=== PATIENT | male | born 1955 | race Two or more races ===

== ENCOUNTER → 2019-10-20 | Emergency (ER) | payer OTHER, MEDICAID ==
[~2019-10-20] VITALS: Ht 175.3 cm; Wt 120.7 kg
[2019-10-20 06:27] LABS: Urine Bacteria NONE SEEN /hpf (None Seen); Urine Blood Negative /uL (Negative); Urine Specific Gravity 1.011 (1.001-1.035); Urine WBC <1 /hpf (0 - 3)
[2019-10-20 06:39] LABS: Basophils # (auto) 0 10 ^3/uL (0-0.2); Eosinophils # (auto) 0.2 10 ^3/uL (0-0.8); Lymphocytes # (auto) 2.4 10 ^3/uL (0.4-5.4); Monocytes # (auto) 0.9 10 ^3/uL (0-1.3); Red Blood Cells 4.51 10^6/uL (4.5-5.90)
[2019-10-20 06:41] LABS: Basophils % (auto) 0.2 % (0.0-2.0); Eosinophils % (auto) 2.4 % (0.0-7.0); Hematocrit 33.6 % (41.0-53.0); Hemoglobin 10.8 g/dL (13.5-17.5); Mean Corpuscular Hemoglobin 23.9 pg (28.0-32.0); Mean Corpuscular Volume 74.5 fL (80.0-100.0); Neutrophils % (auto) 58.4 % (37.0-80.0); Nucleated Red Blood Cells % 0.1 %; Platelet Count (auto) 243 10^3/uL (140-450); Red Cell Distribution Width 18.4 % (11.8-14.3); White Blood Cell 8.6 10^3/uL (4.4-10.8)
[2019-10-20 06:51] LABS: INR 1.12 (0.9-1.15); Partial Thromboplastin Time 26.5 sec (23.64-32.05)
[2019-10-20 06:57] LABS: Alanine Aminotransferase 28 U/L (16-61); Albumin 3.6 g/dL (3.4-5.0); Amylase 73 U/L (25-115); Anion Gap 7 (5-15); Aspartate Aminotransferase 17 U/L (15-37); BUN/Creatinine Ratio 13.6; Blood Urea Nitrogen 14 mg/dL (7-18); Calcium 8.4 mg/dL (8.5-10.1); Carbon Dioxide 26 mmol/L (21-32); Chloride 106 mmol/L (98-107); GFR African American 94 mL/min; GFR Non-African American 77 mL/min; Glucose 117 mg/dL (74-106); Lipase 151 U/L (73-393); Magnesium 2.1 mg/dL (1.6-2.6); Potassium 3.5 mmol/L (3.5-5.1); Sodium 139 mmol/L (136-145)
[2019-10-20 07:02] LABS: Alkaline Phosphatase 49 U/L (45-117); Bilirubin, Total 0.4 mg/dL (0.2-1.0); Total Protein 8.4 g/dL (6.4-8.2)
[2019-10-20 09:06] VITALS: BP 141/72
== END | disposition home or self-care (01) ==
LOC: ER 05:13
DX: R10.84 Generalized abdominal pain (principal); E11.9 Type 2 diabetes mellitus without complications; I10 Essential (primary) hypertension; Z93.3 Colostomy status
CPT/HCPCS: 36415; 74176; 80053; 81001; 82150; 82962; 83605; 83690; 83735; 84484; 85025; 85610; 85730; 93005

== ENCOUNTER → 2021-05-23 | Outpatient (CLI) | payer MEDICAID ==
[~2021-05-23] VITALS: Ht 175.3 cm; Wt 120.2 kg
[~2021-05-23] MED LIST: ADENOSINE 101 MG in GIVE UN-DILUTED 0 ML IV STA
[2021-05-23 09:55] VITALS: BP 138/70
== END | disposition home or self-care (01) ==
LOC: XY 08:12
PROVIDERS: ATTEND Internal Medicine
DX: I11.0 Hypertensive heart disease with heart failure (principal); I50.9 Heart failure, unspecified; R63.8 Other symptoms and signs concerning food and fluid intake; E11.9 Type 2 diabetes mellitus without complications; Z95.5 Presence of coronary angioplasty implant and graft; Z93.3 Colostomy status; Z79.4 Long term (current) use of insulin; Z98.890 Other specified postprocedural states
CPT/HCPCS: 78452; 93017; A9500; J0153

== ENCOUNTER 2021-12-06 08:12 | Inpatient (IN) | payer OTHER, MEDICAID ==
[2021-12-04 10:46] LABS: Eosinophils # (auto) 0.4 10 ^3/uL (0-0.8); Lymphocytes # (auto) 2.4 10 ^3/uL (0.4-5.4); Monocytes # (auto) 0.7 10 ^3/uL (0-1.3); Monocytes % (auto) 8.4 % (0.0-12.0)
[2021-12-04 10:51] LABS: Basophils # (auto) 0.1 10 ^3/uL (0-0.2); Basophils % (auto) 0.6 % (0.0-2.0); Eosinophils % (auto) 4.6 % (0.0-7.0); Hematocrit 39.3 % (41.0-53.0); Hemoglobin 12.7 g/dL (13.5-17.5); Lymphocytes % (auto) 26.7 % (10.0-50.0); Mean Corpuscular Hemoglobin 22.7 pg (28.0-32.0); Mean Corpuscular Hgb Conc. 32.4 g/dL (32.0-36.0); Mean Corpuscular Volume 70.1 fL (80.0-100.0); Neutrophils # (auto) 5.3 10 ^3/uL (1.6-8.6); Neutrophils % (auto) 59.7 % (37.0-80.0); Nucleated Red Blood Cells % 0.2 %; Red Blood Cells 5.61 10^6/uL (4.5-5.90); White Blood Cell 8.9 10^3/uL (4.4-10.8)
[2021-12-04 10:58] LABS: INR 1.1 (0.9-1.15); Partial Thromboplastin Time 26.9 sec (23.6-33.0)
[2021-12-04 11:06] LABS: Calcium 8.8 mg/dL (8.5-10.1); Potassium 3.8 mmol/L (3.5-5.1)
[2021-12-04 11:09] LABS: Bilirubin, Total 0.4 mg/dL (0.2-1.0); Total Protein 8.7 g/dL (6.4-8.2)
[2021-12-06] VITALS (9 sets, daily range): BP systolic 123–166; BP diastolic 64–96
[~2021-12-06] VITALS: Ht 175.3 cm; Wt 120.8 kg
[~2021-12-06 08:12] MED LIST changes: -ADENOSINE 101 MG in GIVE UN-DILUTED 0 ML IV STA; +AMLO-496 PO; +DULA1INJ SC; +FURO40TA4 PO; +GABA-339 PO; +GLIP10TA9 PO; +HYDR50TA15 PO; +INSU1INJ19 SC; +LISI20TA28 PO; +METF-929 PO; +METO-159 PO; +OME20T PO; +TIZA4TAB9 PO
[2021-12-06] MEDS ORDERED: HEPARIN SODIUM (PORCINE) 5000 UNITS/ML 1ML VIAL ONE (11:32)
[2021-12-06] MEDS ORDERED: VERAPAMIL 2.5MG/ML INJ 2ML VIAL IV ONE (11:32)
[2021-12-06] MEDS ORDERED: ANGIOMAX 250 MG VIAL IV ONE (11:32)
[2021-12-06] MEDS ORDERED: SODIUM CHL 0.9% 0 ML ONE (11:33)
[2021-12-06] MEDS ORDERED: fentaNYL CITRATE 100 MCG/2 ML VL ONE (11:33)
[2021-12-06] MEDS ORDERED: MIDAZOLAM HCL 2MG/2ML 2ml VIAL (1mg/ml) ONE (11:33)
[2021-12-06] MEDS ORDERED: IODIXANOL 320MG/ML 100ML BTL IV ONE (11:38)
[2021-12-06] MEDS ORDERED: MORPHINE SULFATE INJ 2 MG/ml SYRG IV PRN (12:15)
[2021-12-06] MEDS ORDERED: NITROGLYCERIN 0.4 MG SL TAB SL PRN (12:15)
[2021-12-06] MEDS ORDERED: ONDANSETRON HCL 4 MG/2 ML VIAL IV PRN (12:15)
[2021-12-06] MEDS ORDERED: ACETAMINOPHEN 500 MG TAB PO PRN (12:15)
[2021-12-06] MEDS ORDERED: DEXTROSE (50%) 50ML SYRG IV PRN (13:45)
[2021-12-06] MEDS ORDERED: LISINOPRIL 20 MG TAB PO ONE (13:45)
[2021-12-06] MEDS ORDERED: cloNIDine HCL 0.1 MG TAB PO PRN (14:00)
[2021-12-06] MEDS: ACCU-CHEK COMFORT CURVE STRIP VI SCH ×2 (17:34→22:00)
[2021-12-06] MEDS: InsuLIN REG 1unit/0.01ml Soln (100units/ml) SC SCH ×2 (17:35→22:01)
[2021-12-06] MEDS: HYDROcodone-ACET 5/325MG TAB PO PRN (21:08)
[2021-12-06 21:28] LABS: Urine Bacteria NONE SEEN /hpf (None Seen); Urine Blood Negative /uL (Negative); Urine Specific Gravity 1.034 (1.001-1.035); Urine WBC 1 /hpf (0 - 3)
[2021-12-06] MEDS: ATORVASTATIN 20 MG TAB PO SCH (22:00)
[2021-12-06] MEDS: METOPROLOL TARTRATE 50 MG TAB PO SCH (22:47)
[2021-12-07 05:00] VITALS: BP 147/77
[2021-12-07 05:23] LABS: Basophils # (auto) 0 10 ^3/uL (0-0.2); Basophils % (auto) 0.1 % (0.0-2.0); Eosinophils # (auto) 0.4 10 ^3/uL (0-0.8); Hemoglobin 12.2 g/dL (13.5-17.5); Monocytes # (auto) 0.8 10 ^3/uL (0-1.3); Neutrophils # (auto) 4.7 10 ^3/uL (1.6-8.6); Nucleated Red Blood Cells % 0.1 %; White Blood Cell 7.8 10^3/uL (4.4-10.8)
[2021-12-07 05:26] LABS: Eosinophils % (auto) 5.1 % (0.0-7.0); Hematocrit 37.9 % (41.0-53.0); Lymphocytes % (auto) 25.1 % (10.0-50.0); Mean Corpuscular Hemoglobin 22.6 pg (28.0-32.0); Mean Corpuscular Hgb Conc. 32.2 g/dL (32.0-36.0); Monocytes % (auto) 10.1 % (0.0-12.0); Neutrophils % (auto) 59.6 % (37.0-80.0); Red Blood Cells 5.41 10^6/uL (4.5-5.90)
[2021-12-07 05:34] LABS: Red Cell Distribution Width 21.3 % (11.8-14.3)
[2021-12-07] MEDS: ACCU-CHEK COMFORT CURVE STRIP VI SCH ×4 (05:49→21:47)
[2021-12-07] MEDS: InsuLIN REG 1unit/0.01ml Soln (100units/ml) SC SCH ×4 (06:01→21:47)
[2021-12-07 06:22] LABS: Calcium 8.7 mg/dL (8.5-10.1); Potassium 3.6 mmol/L (3.5-5.1)
[2021-12-07 06:25] LABS: BUN/Creatinine Ratio 14.7
[2021-12-07 09:00] VITALS: BP 148/79
[2021-12-07] MEDS: ASPirin 81 mg TAB PO SCH (09:48)
[2021-12-07] MEDS: PANTOPRAZOLE 40 MG TAB PO SCH (09:49)
[2021-12-07] MEDS: LISINOPRIL 20 MG TAB PO SCH (09:50)
[2021-12-07] MEDS: METOPROLOL TARTRATE 50 MG TAB PO SCH ×2 (09:54→21:47)
[2021-12-07 10:40] VITALS: BP 140/76
[2021-12-07 13:00] VITALS: BP 137/80
[2021-12-07] MEDS: HYDROcodone-ACET 5/325MG TAB PO PRN (15:30)
[2021-12-07 16:46] VITALS: BP 151/78
[2021-12-07] MEDS: ATORVASTATIN 20 MG TAB PO SCH (21:46)
[2021-12-07 22:46] VITALS: BP 121/79
[2021-12-08 05:13] VITALS: BP 142/80
[2021-12-08] MEDS: InsuLIN REG 1unit/0.01ml Soln (100units/ml) SC SCH ×2 (06:44→12:12)
[2021-12-08] MEDS: ACCU-CHEK COMFORT CURVE STRIP VI SCH ×2 (06:44→12:12)
[2021-12-08 08:10] VITALS: BP 151/79
[2021-12-08 09:20] VITALS: BP 151/79
[2021-12-08] MEDS: LISINOPRIL 20 MG TAB PO SCH (10:09)
[2021-12-08] MEDS: ASPirin 81 mg TAB PO SCH (10:09)
[2021-12-08] MEDS: PANTOPRAZOLE 40 MG TAB PO SCH (10:09)
[2021-12-08] MEDS: METOPROLOL TARTRATE 50 MG TAB PO SCH (10:09)
[2021-12-08] MEDS: HYDROcodone-ACET 5/325MG TAB PO PRN (12:20)
[2021-12-08 12:48] VITALS: BP 129/74
[2021-12-08 15:28] VITALS: BP 129/74
== END 2021-12-08 16:15 | disposition short-term general hospital (02) | DRG 287 ==
LOC: CATH 08:12 → TELE 12:15 → TELE-WESTW 15:24
PROVIDERS: ADMIT Internal Medicine; ATTEND Internal Medicine
PROC: 4A023N7 Measurement of Cardiac Sampling and Pressure, Left Heart, Percutaneous Approach (ICD-10-PCS; principal; 2021-12-06)
PROC: B2111ZZ Fluoroscopy of Multiple Coronary Arteries using Low Osmolar Contrast (ICD-10-PCS; 2021-12-06)
PROC: B2151ZZ Fluoroscopy of Left Heart using Low Osmolar Contrast (ICD-10-PCS; 2021-12-06)
DX: I25.10 Atherosclerotic heart disease of native coronary artery without angina pectoris (principal); I50.32 Chronic diastolic (congestive) heart failure; I11.0 Hypertensive heart disease with heart failure; E11.42 Type 2 diabetes mellitus with diabetic polyneuropathy; E66.01 Morbid (severe) obesity due to excess calories; E78.5 Hyperlipidemia, unspecified; Z93.3 Colostomy status; Z87.19 Personal history of other diseases of the digestive system; Z79.4 Long term (current) use of insulin; Z68.39 Body mass index [BMI] 39.0-39.9, adult
CPT/HCPCS: 36415; 80048; 80053; 80061; 81001; 82962; 83036; 85025; 85610; 85730; 93458; 99152; G0378; J1815; J2250; Q9967

== ENCOUNTER → 2022-03-20 | Outpatient (CLI) | payer OTHER, MEDICAID ==
[2022-03-20 11:51] LABS: Albumin 3.5 g/dL (3.4-5.0); Calcium 8.3 mg/dL (8.5-10.1); Potassium 3.6 mmol/L (3.5-5.1)
[2022-03-20 11:54] LABS: BUN/Creatinine Ratio 9.7; Bilirubin, Total 0.4 mg/dL (0.2-1.0); Total Protein 7.9 g/dL (6.4-8.2)
== END | disposition home or self-care (01) ==
LOC: LAB 10:55
PROVIDERS: ATTEND Internal Medicine
DX: I11.0 Hypertensive heart disease with heart failure (principal); I50.9 Heart failure, unspecified
CPT/HCPCS: 36415; 80053; 83880

== ENCOUNTER → 2022-03-22 | Outpatient (CLI) | payer OTHER, MEDICAID | END | disposition home or self-care (01) | LOC: XYW 10:41 | PROVIDERS: ATTEND Internal Medicine | DX: I08.8 Other rheumatic multiple valve diseases (principal); I24.9 Acute ischemic heart disease, unspecified; I11.9 Hypertensive heart disease without heart failure | CPT/HCPCS: 93306 ==

== ENCOUNTER → 2022-05-07 | Outpatient (CLI) | payer OTHER, MEDICAID ==
[2022-05-07 09:03] LABS: Albumin 3.7 g/dL (3.4-5.0); BUN/Creatinine Ratio 13.9; Calcium 8.8 mg/dL (8.5-10.1); Potassium 3.9 mmol/L (3.5-5.1)
[2022-05-07 09:05] LABS: Bilirubin, Total 0.4 mg/dL (0.2-1.0); Total Protein 8.2 g/dL (6.4-8.2)
== END | disposition home or self-care (01) ==
LOC: LAB 08:23
PROVIDERS: ATTEND Internal Medicine
DX: I10 Essential (primary) hypertension (principal)
CPT/HCPCS: 36415; 80053

== ENCOUNTER → 2022-08-06 | Outpatient (CLI) | payer OTHER, MEDICAID ==
[2022-08-06 07:48] LABS: Urine Blood Normal /uL (Negative)
[2022-08-06 07:50] LABS: Basophils # (auto) 0 10 ^3/uL (0-0.2); Eosinophils # (auto) 0.4 10 ^3/uL (0-0.8); Lymphocytes # (auto) 2.7 10 ^3/uL (0.4-5.4); Monocytes # (auto) 0.7 10 ^3/uL (0-1.3); Neutrophils # (auto) 4.7 10 ^3/uL (1.6-8.6)
[2022-08-06 07:52] LABS: Basophils % (auto) 0.2 % (0.0-2.0); Eosinophils % (auto) 4.4 % (0.0-7.0); Hematocrit 36.5 % (41.0-53.0); Lymphocytes % (auto) 32.3 % (10.0-50.0); Mean Corpuscular Hemoglobin 19.4 pg (28.0-32.0); Mean Corpuscular Hgb Conc. 30.1 g/dL (32.0-36.0); Mean Corpuscular Volume 64.3 fL (80.0-100.0); Monocytes % (auto) 8.1 % (0.0-12.0); Red Blood Cells 5.67 10^6/uL (4.5-5.90); White Blood Cell 8.5 10^3/uL (4.4-10.8)
[2022-08-06 07:56] LABS: Red Cell Distribution Width 21.7 % (11.8-14.3)
[2022-08-06 08:22] LABS: Potassium 4.1 mmol/L (3.5-5.1)
[2022-08-06 08:35] LABS: Albumin 3.7 g/dL (3.4-5.0); BUN/Creatinine Ratio 12.6; Bilirubin, Total 0.4 mg/dL (0.2-1.0); Calcium 8.5 mg/dL (8.5-10.1); Total Protein 8.4 g/dL (6.4-8.2)
== END | disposition home or self-care (01) ==
LOC: LAB 07:17
PROVIDERS: ATTEND Student in an Organized Health Care Education/Training Program
DX: I10 Essential (primary) hypertension (principal); E11.9 Type 2 diabetes mellitus without complications
CPT/HCPCS: 36415; 80053; 80061; 81001; 83036; 84443; 85025

== ENCOUNTER → 2022-12-04 | Outpatient (CLI) | payer OTHER, MEDICAID ==
[~2022-12-04] MED LIST changes: -AMLO-496 PO; +AMLO1TAB23 PO; +HYDR-4297 PO; -HYDR50TA15 PO; -LISI20TA28 PO; +LISI20TA56 PO
[2022-12-04 07:44] LABS: Basophils # (auto) 0 10 ^3/uL (0-0.2); Hemoglobin 11.4 g/dL (13.5-17.5); Lymphocytes # (auto) 2.6 10 ^3/uL (0.4-5.4); Mean Corpuscular Hemoglobin 20.3 pg (28.0-32.0); Monocytes # (auto) 0.7 10 ^3/uL (0-1.3)
[2022-12-04 07:46] LABS: Basophils % (auto) 0.4 % (0.0-2.0); Eosinophils # (auto) 0.4 10 ^3/uL (0-0.8); Eosinophils % (auto) 4.9 % (0.0-7.0); Mean Corpuscular Hgb Conc. 30.9 g/dL (32.0-36.0); Mean Corpuscular Volume 65.6 fL (80.0-100.0); Monocytes % (auto) 9.9 % (0.0-12.0); Neutrophils # (auto) 3.8 10 ^3/uL (1.6-8.6); Neutrophils % (auto) 50.8 % (37.0-80.0); Nucleated Red Blood Cells % 0.2 %; Red Blood Cells 5.64 10^6/uL (4.5-5.90); White Blood Cell 7.6 10^3/uL (4.4-10.8)
[2022-12-04 07:51] LABS: Urine Bacteria NONE SEEN /hpf (None Seen); Urine Blood Negative /uL (Negative); Urine WBC <1 /hpf (0 - 3)
[2022-12-04 08:24] LABS: Calcium 8.3 mg/dL (8.5-10.1); Potassium 3.7 mmol/L (3.5-5.1)
[2022-12-04 08:26] LABS: BUN/Creatinine Ratio 9.6 (10.0-20.0)
== END | disposition home or self-care (01) ==
LOC: LAB 07:12
PROVIDERS: ATTEND Student in an Organized Health Care Education/Training Program
DX: I10 Essential (primary) hypertension (principal); E11.9 Type 2 diabetes mellitus without complications
CPT/HCPCS: 36415; 80048; 81001; 83036; 85025

== ENCOUNTER → 2022-12-13 | Outpatient (CLI) | payer OTHER, MEDICAID ==
[2022-12-13 09:40] LABS: Calcium 8.8 mg/dL (8.5-10.1); Potassium 3.8 mmol/L (3.5-5.1)
[2022-12-13 09:46] LABS: Albumin 3.7 g/dL (3.4-5.0); Bilirubin, Total 0.4 mg/dL (0.2-1.0); Total Protein 8.3 g/dL (6.4-8.2)
== END | disposition home or self-care (01) ==
LOC: LAB 08:44
PROVIDERS: ATTEND Internal Medicine
DX: I50.32 Chronic diastolic (congestive) heart failure (principal)
CPT/HCPCS: 36415; 80053; 83880

== ENCOUNTER → 2023-04-08 | Outpatient (CLI) | payer OTHER, MEDICAID ==
[2023-04-08 07:23] LABS: Urine Bacteria NONE SEEN /hpf (None Seen); Urine Blood Negative /uL (Negative); Urine Clarity Clear (Clear); Urine Color Colorless (Yellow); Urine Mucus FEW (None Seen); Urine Protein, UAD 2+ (Negative); Urine Specific Gravity 1.011 (1.001-1.035); Urine Urobilinogen Normal (Negative); Urine WBC <1 /hpf (0 - 3)
[2023-04-08 08:00] LABS: Creatinine, Urine 48.09 mg/dL (30.0-125.0)
[2023-04-08 08:05] LABS: Alanine Aminotransferase 31 U/L (7-40); Albumin 4.5 g/dL (3.2-4.8); Alkaline Phosphatase 66 U/L (46-116); Anion Gap 9 (5-15); Aspartate Aminotransferase 16 U/L (13-40); Bilirubin, Total 0.4 mg/dL (0.2-1.0); Blood Urea Nitrogen 18 mg/dL (9-23); Calcium 9.1 mg/dL (8.5-10.1); Carbon Dioxide 27 mmol/L (20-30); Chloride 104 mmol/L (98-107); Glucose 149 mg/dL (74-106); Potassium 3.9 mmol/L (3.5-5.1); Sodium 140 mmol/L (136-145)
== END | disposition home or self-care (01) ==
LOC: LAB 06:32
PROVIDERS: ATTEND Student in an Organized Health Care Education/Training Program
DX: I10 Essential (primary) hypertension (principal); E11.9 Type 2 diabetes mellitus without complications
CPT/HCPCS: 36415; 80053; 81001; 82043; 82570; 83036

== ENCOUNTER → 2023-08-12 | Outpatient (CLI) | payer OTHER, MEDICAID | END | disposition home or self-care (01) | LOC: XYW 09:36 | PROVIDERS: ATTEND Internal Medicine | DX: I35.0 Nonrheumatic aortic (valve) stenosis (principal); I50.42 Chronic combined systolic (congestive) and diastolic (congestive) heart failure | CPT/HCPCS: 93306 ==

== ENCOUNTER → 2023-09-09 | Outpatient (CLI) | payer OTHER ==
[~2023-09-09] VITALS: Ht 175.3 cm; Wt 120.2 kg
[~2023-09-09] MED LIST changes: +ADENOSINE 101 MG in GIVE UN-DILUTED 0 ML IV ONE; +ADENOSINE 90 MG/30 ML INJ IV ONE
== END | disposition home or self-care (01) ==
LOC: Rad HDHVI 13:03
PROVIDERS: ATTEND Internal Medicine Cardiovascular Disease
DX: I11.0 Hypertensive heart disease with heart failure (principal); I50.42 Chronic combined systolic (congestive) and diastolic (congestive) heart failure; R07.89 Other chest pain; R06.02 Shortness of breath; E11.9 Type 2 diabetes mellitus without complications; E78.00 Pure hypercholesterolemia, unspecified; Z95.1 Presence of aortocoronary bypass graft; Z82.49 Family history of ischemic heart disease and other diseases of the circulatory system
CPT/HCPCS: 78452; 93005; 96374; 96375; A9500; J0153

== ENCOUNTER → 2023-11-01 | Outpatient (CLI) | payer OTHER, MEDICAID ==
[~2023-11-01] MED LIST changes: -ADENOSINE 101 MG in GIVE UN-DILUTED 0 ML IV ONE; -ADENOSINE 90 MG/30 ML INJ IV ONE; -HYDR-4297 PO; +HYDR50TA47 PO
[2023-11-01 06:57] LABS: Urine Bacteria None Seen /hpf (None Seen)
[2023-11-01 07:11] LABS: Basophils # (auto) 0 10 ^3/uL (0-0.2); Basophils % (auto) 0.3 % (0.0-2.0); Eosinophils # (auto) 0.4 10 ^3/uL (0-0.8); Hemoglobin 11.1 g/dL (13.5-17.5); Monocytes # (auto) 0.8 10 ^3/uL (0-1.3)
[2023-11-01 07:14] LABS: Eosinophils % (auto) 4.1 % (0.0-7.0); Lymphocytes # (auto) 2.4 10 ^3/uL (0.4-5.4); Lymphocytes % (auto) 25.1 % (10.0-50.0); Mean Corpuscular Hgb Conc. 30.7 g/dL (32.0-36.0); Mean Corpuscular Volume 65.2 fL (80.0-100.0); Monocytes % (auto) 8.1 % (0.0-12.0); Neutrophils % (auto) 62.4 % (37.0-80.0); Red Blood Cells 5.53 10^6/uL (4.5-5.90); White Blood Cell 9.6 10^3/uL (4.4-10.8)
[2023-11-01 07:15] LABS: Red Cell Distribution Width 23.1 % (11.8-14.3)
[2023-11-01 07:20] LABS: Alanine Aminotransferase 21 U/L (7-40); Albumin 4.7 g/dL (3.2-4.8); Alkaline Phosphatase 66 U/L (46-116); Anion Gap 7 (5-15); Aspartate Aminotransferase 13 U/L (13-40); BUN/Creatinine Ratio 14.4 (10.0-20.0); Bilirubin, Total 0.4 mg/dL (0.2-1.0); Blood Urea Nitrogen 20 mg/dL (9-23); Calcium 9.3 mg/dL (8.5-10.1); Carbon Dioxide 25 mmol/L (20-30); Chloride 109 mmol/L (98-107); Cholesterol 102 mg/dL (< 200); Glucose 85 mg/dL (74-106); HDL Cholesterol 36 mg/dL (40-59); LDL Cholesterol 50 mg/dL (< 100); Potassium 5.2 mmol/L (3.5-5.1); Sodium 141 mmol/L (136-145); Triglycerides 89 mg/dL (< 150)
[2023-11-01 07:21] LABS: Total Protein 8.2 g/dL (5.7-8.2)
[2023-11-01 07:23] LABS: Urine Blood Negative /uL (Negative); Urine Clarity Clear (Clear); Urine Color Light-Yellow (Yellow); Urine Protein, UAD 1+ (Negative); Urine Specific Gravity 1.013 (1.001-1.035); Urine Urobilinogen Normal (Negative); Urine WBC 1 /hpf (0 - 3)
[2023-11-01 07:34] LABS: Anisocytosis Slight; Hypochromia Moderate; Platelet Estimate Adequate
[2023-11-01 07:39] LABS: Creatinine, Urine 60.86 mg/dL (30.0-125.0)
== END | disposition home or self-care (01) ==
LOC: LAB 06:46
PROVIDERS: ATTEND Student in an Organized Health Care Education/Training Program
DX: Z12.5 Encounter for screening for malignant neoplasm of prostate (principal); E11.9 Type 2 diabetes mellitus without complications; I10 Essential (primary) hypertension
CPT/HCPCS: 36415; 80053; 80061; 81001; 82043; 82570; 83036; 84443; 85025

== ENCOUNTER 2024-01-05 10:09 | Inpatient (IN) | payer OTHER, MEDICAID ==
[~2024-01-05] VITALS: Ht 175.3 cm; Wt 118.4 kg
[~2024-01-05 10:09] MED LIST changes: +INSUINJ37 SC; +LOSA-535 PO; +TIRZ7.5I SC
[2024-01-05] MEDS: PANTOPRAZOLE 40 MG/10 ML VIAL INJ IV ONE (10:44)
[2024-01-05] MEDS: MORPHINE SULFATE 4 MG/ML SYR/VIAL IV ONE (10:44)
[2024-01-05] MEDS: ONDANSETRON HCL 4 MG/2 ML VIAL IV ONE (10:44)
[2024-01-05] MEDS: SODIUM CHLORIDE 0.9% 500 ML IVB ONE (10:48)
[2024-01-05 10:54] LABS: Eosinophils # (auto) 0 10 ^3/uL (0-0.8); Monocytes # (auto) 0.8 10 ^3/uL (0-1.3); Red Cell Distribution Width 23.3 % (11.8-14.3)
[2024-01-05 10:55] LABS: Basophils # (auto) 0.1 10 ^3/uL (0-0.2); Basophils % (auto) 0.5 % (0.0-2.0); Hematocrit 37.6 % (41.0-53.0); Hemoglobin 11.5 g/dL (13.5-17.5); Lymphocytes % (auto) 7.7 % (10.0-50.0); Mean Corpuscular Hemoglobin 20.1 pg (28.0-32.0); Mean Corpuscular Hgb Conc. 30.7 g/dL (32.0-36.0); Mean Corpuscular Volume 65.3 fL (80.0-100.0); Monocytes % (auto) 5.7 % (0.0-12.0); Neutrophils # (auto) 11.5 10 ^3/uL (1.6-8.6); Neutrophils % (auto) 86.1 % (37.0-80.0); Red Blood Cells 5.76 10^6/uL (4.5-5.90); White Blood Cell 13.3 10^3/uL (4.4-10.8)
[2024-01-05 11:11] LABS: Alanine Aminotransferase 18 U/L (7-40); Albumin 4.4 g/dL (3.2-4.8); Alkaline Phosphatase 67 U/L (46-116); Anion Gap 10 (5-15); Aspartate Aminotransferase < 8 U/L (13-40); BUN/Creatinine Ratio 11.2 (10.0-20.0); Blood Urea Nitrogen 13 mg/dL (9-23); Calcium 9.3 mg/dL (8.7-10.4); Carbon Dioxide 22 mmol/L (20-30); Chloride 106 mmol/L (98-107); Glucose 224 mg/dL (74-106); Lipase 42 U/L (12-53); Potassium 3.8 mmol/L (3.5-5.1); Sodium 138 mmol/L (136-145)
[2024-01-05 11:12] LABS: Bilirubin, Total 0.5 mg/dL (0.2-1.0); Total Protein 7.9 g/dL (5.7-8.2)
[2024-01-05 12:33] LABS: Urine Bacteria None Seen /hpf (None Seen)
[2024-01-05 12:55] LABS: Urine Blood Negative /uL (Negative); Urine Clarity Clear (Clear); Urine Color Light-Yellow (Yellow); Urine Protein, UAD 3+ (Negative); Urine Specific Gravity 1.024 (1.001-1.035); Urine Urobilinogen Normal (Negative); Urine WBC 5 /hpf (0 - 3)
[2024-01-05] MEDS ORDERED: DEXTROSE (50%) 50ML SYRG IV PRN (13:45)
[2024-01-05 13:49] LABS: Triglycerides 56 mg/dL (< 150)
[2024-01-05 13:50] LABS: LDL Cholesterol 63 mg/dL (< 100)
[2024-01-05 13:51] LABS: Cholesterol 128 mg/dL (< 200); HDL Cholesterol 49 mg/dL (40-59)
[2024-01-05] MEDS ORDERED: metroNIDAZOLE 500MG/100ML 100 ML IV SCH (14:00)
[2024-01-05] MEDS: SODIUM CHLORIDE 0.9% 1,000 ML IV SCH (14:30)
[2024-01-05] MEDS: cefTRIAXone 1GM/50ML D5W 50 ML IV ONE (14:33)
[2024-01-05 15:26] VITALS: PULSE 73; RESP 18; O2SAT 91
[2024-01-05] MEDS: PIPERACILLIN-TAZOB 3.375GM 100 ML IV ONE (16:14)
[2024-01-05] MEDS: ENOXAPARIN SOD 40 MG/0.4 ML SYRINGE SC SCH (16:21)
[2024-01-05] MEDS: glipiZIDE 5 MG TAB PO SCH (17:00)
[2024-01-05] MEDS: InsuLIN REG 1unit/0.01ml Soln (100units/ml) SC SCH (17:00)
[2024-01-05] MEDS: ACCU-CHEK COMFORT CURVE STRIP VI SCH (17:13)
[2024-01-05] MEDS: hydrALAZINE HCL 25 MG TAB PO SCH (18:00)
[2024-01-05] MEDS: ACETAMINOPHEN 325 MG TAB PO PRN (20:03)
[2024-01-05] MEDS: HYDROcodone-ACET 5/325MG TAB PO PRN (20:08)
[2024-01-05] MEDS: METOPROLOL TARTRATE 50 MG TAB PO SCH (20:09)
[2024-01-05 22:54] VITALS: BP 154/76; PULSE 66; RESP 17; TEMP 97.6; O2SAT 96
[2024-01-05 22:58] VITALS: PULSE 66; RESP 17; O2SAT 96
[2024-01-05] MEDS: PIPERACILLIN-TAZOB 3.375GM 100 ML IV SCH (23:12)
[2024-01-06] VITALS (7 sets, daily range): BP systolic 124–158; BP diastolic 62–81; PULSE 76–89; RESP 16–20; TEMP 97.6–101.4; O2SAT 90–96
[2024-01-06] MEDS: MORPHINE SULFATE INJ 2 MG/ml SYRG IV PRN (00:10)
[2024-01-06] MEDS ORDERED: EMPA1TAB3 PO (00:35)
[2024-01-06] MEDS ORDERED: LOSA-534 PO (00:35)
[2024-01-06] MEDS ORDERED: SPIR25TA8 PO (00:35)
[2024-01-06] MEDS ORDERED: LATA0.008 EACHEYE (00:36)
[2024-01-06 05:55] LABS: Basophils # (auto) 0 10 ^3/uL (0-0.2); Eosinophils # (auto) 0 10 ^3/uL (0-0.8)
[2024-01-06 05:57] LABS: Basophils % (auto) 0.2 % (0.0-2.0); Eosinophils % (auto) 0.1 % (0.0-7.0); Hemoglobin 11.5 g/dL (13.5-17.5); Lymphocytes % (auto) 5.1 % (10.0-50.0); Mean Corpuscular Hemoglobin 20.1 pg (28.0-32.0); Mean Corpuscular Hgb Conc. 31.1 g/dL (32.0-36.0); Mean Corpuscular Volume 64.7 fL (80.0-100.0); Monocytes # (auto) 1.8 10 ^3/uL (0-1.3); Neutrophils # (auto) 17.1 10 ^3/uL (1.6-8.6); Neutrophils % (auto) 85.6 % (37.0-80.0); Red Blood Cells 5.72 10^6/uL (4.5-5.90)
[2024-01-06 06:15] LABS: Alanine Aminotransferase 17 U/L (7-40); Albumin 4.3 g/dL (3.2-4.8); Alkaline Phosphatase 62 U/L (46-116); Anion Gap 9 (5-15); Aspartate Aminotransferase 9 U/L (13-40); BUN/Creatinine Ratio 10.3 (10.0-20.0); Bilirubin, Total 0.8 mg/dL (0.2-1.0); Blood Urea Nitrogen 12 mg/dL (9-23); Calcium 9.1 mg/dL (8.7-10.4); Carbon Dioxide 22 mmol/L (20-30); Chloride 108 mmol/L (98-107); Glucose 203 mg/dL (74-106); Potassium 3.7 mmol/L (3.5-5.1); Sodium 139 mmol/L (136-145); Total Protein 7.8 g/dL (5.7-8.2)
[2024-01-06 06:54] LABS: Anisocytosis Slight; Hypochromia Marked; Ovalocytes FEW; Platelet Estimate Adequate
[2024-01-06] MEDS ORDERED: cefTRIAXone 1GM/50ML D5W 50 ML IV SCH (09:00)
[2024-01-06] MEDS: amLODIPine BESYLATE 5 MG TAB PO SCH (09:40)
[2024-01-06] MEDS: GABAPENTIN 300 MG CAP PO PRN (09:41)
[2024-01-06] MEDS: PANTOPRAZOLE 40 MG TAB PO SCH (09:41)
[2024-01-07] VITALS (12 sets, daily range): BP systolic 109–152; BP diastolic 48–68; PULSE 66–89; RESP 16–23; TEMP 97.2–99.1; O2SAT 90–96
[2024-01-07 05:33] LABS: Mean Corpuscular Hemoglobin 20.6 pg (28.0-32.0)
[2024-01-07 05:37] LABS: Alanine Aminotransferase 22 U/L (7-40); Alkaline Phosphatase 64 U/L (46-116); Anion Gap 8 (5-15); Aspartate Aminotransferase 21 U/L (13-40); BUN/Creatinine Ratio 10.7 (10.0-20.0); Blood Urea Nitrogen 20 mg/dL (9-23); Calcium 9.1 mg/dL (8.7-10.4); Carbon Dioxide 24 mmol/L (20-30); Chloride 106 mmol/L (98-107); Glucose 218 mg/dL (74-106); Sodium 138 mmol/L (136-145)
[2024-01-07 05:38] LABS: Bilirubin, Total 0.9 mg/dL (0.2-1.0); Hematocrit 37.2 % (41.0-53.0); Hemoglobin 11.7 g/dL (13.5-17.5); Mean Corpuscular Hgb Conc. 31.6 g/dL (32.0-36.0); Mean Corpuscular Volume 65.4 fL (80.0-100.0); Red Blood Cells 5.69 10^6/uL (4.5-5.90); Total Protein 7.4 g/dL (5.7-8.2); White Blood Cell 29.5 10^3/uL (4.4-10.8)
[2024-01-07 05:39] LABS: INR 1.52 (0.9-1.15); Partial Thromboplastin Time 31.5 SEC (24.5-34.5); Prothrombin Time 15.6 sec (9.3-11.8)
[2024-01-07 06:03] LABS: Red Cell Distribution Width 23.4 % (11.8-14.3)
[2024-01-07 06:04] LABS: Band Neutrophils % (manual) 0; Basophils % (manual) 0 (0.0-2.0); Blast Cells 0; Eosinophils % (manual) 0 (0-7); Metamyelocytes % 0; Myelocytes % 0; Promyelocytes % 0; Reactive Lymphocytes 0
[2024-01-07 07:49] LABS: Anisocytosis Slight; Hypochromia Marked; Lymphocytes % (manual) 5 (10.0-50.0); Monocytes % (manual) 9 (0-12); Platelet Estimate Adequate
[2024-01-07 07:50] LABS: Ovalocytes FEW
[2024-01-07] MEDS: PANTOPRAZOLE 40 MG/10 ML VIAL INJ IV SCH (09:54)
[2024-01-07] MEDS: SODIUM CHLORIDE 0.9% 1,000 ML IV SCH (14:15)
[2024-01-07] MEDS: METOPROLOL TARTRATE 50 MG TAB PO SCH (17:27)
[2024-01-08 01:00] VITALS: BP 109/66; PULSE 66; RESP 20; TEMP 98.6; O2SAT 92
[2024-01-08 05:00] VITALS: BP 114/52; PULSE 68; RESP 20; TEMP 97.7; O2SAT 92
[2024-01-08 06:54] LABS: Basophils # (auto) 0 10 ^3/uL (0-0.2); Basophils % (auto) 0.2 % (0.0-2.0); Eosinophils # (auto) 0.3 10 ^3/uL (0-0.8); Monocytes # (auto) 1.2 10 ^3/uL (0-1.3)
[2024-01-08 06:58] LABS: Eosinophils % (auto) 2.1 % (0.0-7.0); Hematocrit 35.5 % (41.0-53.0); Lymphocytes # (auto) 1.7 10 ^3/uL (0.4-5.4); Lymphocytes % (auto) 10.2 % (10.0-50.0); Mean Corpuscular Hemoglobin 20.4 pg (28.0-32.0); Mean Corpuscular Volume 65.8 fL (80.0-100.0); Monocytes % (auto) 7.4 % (0.0-12.0); Neutrophils # (auto) 13.4 10 ^3/uL (1.6-8.6); Neutrophils % (auto) 80.1 % (37.0-80.0); Nucleated Red Blood Cells % 0.1 %; White Blood Cell 16.7 10^3/uL (4.4-10.8)
[2024-01-08 07:07] LABS: Alanine Aminotransferase 46 U/L (7-40); Albumin 3.8 g/dL (3.2-4.8); Alkaline Phosphatase 74 U/L (46-116); Anion Gap 9 (5-15); Calcium 8.8 mg/dL (8.7-10.4); Carbon Dioxide 23 mmol/L (20-30); Chloride 105 mmol/L (98-107); Glucose 155 mg/dL (74-106); Potassium 3.4 mmol/L (3.5-5.1); Sodium 137 mmol/L (136-145)
[2024-01-08 07:08] LABS: Aspartate Aminotransferase 43 U/L (13-40); BUN/Creatinine Ratio 15.6 (10.0-20.0); Bilirubin, Total 0.7 mg/dL (0.2-1.0); Total Protein 6.9 g/dL (5.7-8.2)
[2024-01-08 07:10] LABS: Blood Urea Nitrogen 31 mg/dL (9-23)
[2024-01-08 07:18] LABS: Red Cell Distribution Width 23.3 % (11.8-14.3)
[2024-01-08 08:51] VITALS: BP 137/69; PULSE 74; RESP 19; TEMP 97.6; O2SAT 95
[2024-01-08 12:21] VITALS: BP 115/63; PULSE 57; RESP 18; TEMP 97.6; O2SAT 95
[2024-01-08] MEDS ORDERED: DICL1GEL73 EXT (14:55)
[2024-01-08] MEDS ORDERED: OMEP1CAP70 PO (14:55)
[2024-01-08] MEDS ORDERED: ISOS1TAB28 PO (14:55)
[2024-01-08] MEDS ORDERED: ATOR-507 PO (15:06)
[2024-01-08] MEDS ORDERED: LACT12LO26 EX (15:06)
[2024-01-08] MEDS ORDERED: DICL1GEL59 TOP (15:06)
[2024-01-08] MEDS: POTASSIUM CHL 20 Meq TABLET PO ONE (15:14)
[2024-01-08 16:28] VITALS: BP_SYST 101; BP_SYST 115; BP_DIAS 63; BP_DIAS 68; PULSE 57; PULSE 66; RESP 17; RESP 18; TEMP 97.6; O2SAT 92; O2SAT 95
[2024-01-08 21:00] VITALS: BP 112/60; PULSE 72; RESP 18; TEMP 97.9; O2SAT 90
[2024-01-09 01:00] VITALS: BP 124/68; PULSE 68; RESP 17; TEMP 97.7; O2SAT 90
[2024-01-09 05:00] VITALS: BP 141/64; PULSE 78; RESP 17; TEMP 98; O2SAT 92
[2024-01-09 06:25] LABS: Chloride 107 mmol/L (98-107); Potassium 4.1 mmol/L (3.5-5.1); Sodium 138 mmol/L (136-145)
[2024-01-09 06:26] LABS: Anion Gap 10 (5-15); Calcium 8.5 mg/dL (8.7-10.4); Carbon Dioxide 21 mmol/L (20-30)
[2024-01-09 06:31] LABS: BUN/Creatinine Ratio 21.4 (10.0-20.0); Blood Urea Nitrogen 33 mg/dL (9-23); Glucose 168 mg/dL (74-106)
[2024-01-09 06:34] LABS: Hematocrit 34.7 % (41.0-53.0); Hemoglobin 10.8 g/dL (13.5-17.5)
[2024-01-09 06:40] LABS: Mean Corpuscular Hemoglobin 20.6 pg (28.0-32.0); Mean Corpuscular Hgb Conc. 31.2 g/dL (32.0-36.0); Red Blood Cells 5.26 10^6/uL (4.5-5.90)
[2024-01-09 06:48] LABS: Band Neutrophils % (manual) 0; Basophils % (manual) 0 (0.0-2.0); Blast Cells 0; Metamyelocytes % 0; Myelocytes % 0; Promyelocytes % 0; Reactive Lymphocytes 0
[2024-01-09 08:23] LABS: Eosinophils % (manual) 5 (0-7); Lymphocytes % (manual) 19 (10.0-50.0); Monocytes % (manual) 7 (0-12); Platelet Estimate Adequate
[2024-01-09 08:24] LABS: Giant Platelets Few; Hypochromia Moderate
[2024-01-09 08:25] LABS: Anisocytosis Slight
[2024-01-09 08:48] VITALS: BP 117/66; PULSE 71; RESP 22; TEMP 98.1; O2SAT 92
[2024-01-09] MEDS: SODIUM CHLORIDE 0.9% 1,000 ML IV SCH (11:32)
[2024-01-09 12:26] VITALS: BP 126/72; PULSE 63; RESP 18; TEMP 98.1; O2SAT 92
[2024-01-09 16:42] VITALS: BP 140/69; PULSE 63; RESP 20; TEMP 98; O2SAT 92
[2024-01-09 21:00] VITALS: BP 136/68; PULSE 55; RESP 20; TEMP 97.9; O2SAT 92
[2024-01-10 05:00] VITALS: BP 136/68; PULSE 62; RESP 20; TEMP 98; O2SAT 94
[2024-01-10 05:01] LABS: Basophils # (auto) 0 10 ^3/uL (0-0.2); Lymphocytes # (auto) 1.6 10 ^3/uL (0.4-5.4); Monocytes # (auto) 0.7 10 ^3/uL (0-1.3); Red Blood Cells 5.11 10^6/uL (4.5-5.90)
[2024-01-10 05:06] LABS: Basophils % (auto) 0.4 % (0.0-2.0); Eosinophils # (auto) 0.4 10 ^3/uL (0-0.8); Eosinophils % (auto) 6.8 % (0.0-7.0); Hematocrit 33.1 % (41.0-53.0); Hemoglobin 10.5 g/dL (13.5-17.5); Lymphocytes % (auto) 23.8 % (10.0-50.0); Mean Corpuscular Hemoglobin 20.6 pg (28.0-32.0); Mean Corpuscular Hgb Conc. 31.8 g/dL (32.0-36.0); Mean Corpuscular Volume 64.7 fL (80.0-100.0); Monocytes % (auto) 10.5 % (0.0-12.0); Neutrophils # (auto) 3.8 10 ^3/uL (1.6-8.6); Neutrophils % (auto) 58.5 % (37.0-80.0); Nucleated Red Blood Cells % 0.1 %; White Blood Cell 6.5 10^3/uL (4.4-10.8)
[2024-01-10 05:15] LABS: Alanine Aminotransferase 42 U/L (7-40); Alkaline Phosphatase 81 U/L (46-116); Calcium 8.8 mg/dL (8.7-10.4); Carbon Dioxide 23 mmol/L (20-30); Chloride 108 mmol/L (98-107); Glucose 152 mg/dL (74-106)
[2024-01-10 05:16] LABS: Albumin 3.7 g/dL (3.2-4.8); Anion Gap 8 (5-15); Aspartate Aminotransferase 24 U/L (13-40); BUN/Creatinine Ratio 14.1 (10.0-20.0); Bilirubin, Total 0.5 mg/dL (0.2-1.0); Blood Urea Nitrogen 18 mg/dL (9-23); Potassium 3.7 mmol/L (3.5-5.1); Sodium 139 mmol/L (136-145); Total Protein 6.7 g/dL (5.7-8.2)
[2024-01-10 05:27] LABS: Red Cell Distribution Width 22.4 % (11.8-14.3)
[2024-01-10 09:00] VITALS: BP 140/71; PULSE 62; RESP 18; TEMP 98.2; O2SAT 94
[2024-01-10 13:00] VITALS: BP 132/66; PULSE 57; RESP 18; TEMP 98.2; O2SAT 94
[2024-01-10 17:00] VITALS: BP 130/58; PULSE 62; RESP 18; TEMP 98; O2SAT 93
[2024-01-10 21:00] VITALS: BP 127/61; PULSE 62; RESP 18; TEMP 98.1; O2SAT 90
[2024-01-11] VITALS (8 sets, daily range): BP systolic 121–157; BP diastolic 58–72; PULSE 64–78; RESP 17–21; TEMP 97.6–98.7; O2SAT 92–94
[2024-01-12] VITALS (8 sets, daily range): BP systolic 130–152; BP diastolic 69–86; PULSE 62–81; RESP 16–20; TEMP 98–98.6; O2SAT 90–97
[2024-01-13] VITALS (8 sets, daily range): BP systolic 125–158; BP diastolic 63–85; PULSE 65–81; RESP 17–22; TEMP 97.5–98.7; O2SAT 91–98
[2024-01-13 06:51] LABS: Hematocrit 32.9 % (41.0-53.0); Hemoglobin 10.4 g/dL (13.5-17.5); Mean Corpuscular Hemoglobin 20.7 pg (28.0-32.0); Mean Corpuscular Hgb Conc. 31.7 g/dL (32.0-36.0); Mean Corpuscular Volume 65.3 fL (80.0-100.0); Red Blood Cells 5.04 10^6/uL (4.5-5.90); White Blood Cell 7.7 10^3/uL (4.4-10.8)
[2024-01-13] MEDS: BUPIVACAINE 0.25% INJ 50ML VIAL ONE (06:51)
[2024-01-13] MEDS: LIDOCAINE W/ EPINEPHRINE 1% 20ML VIAL ONE (06:51)
[2024-01-13 06:57] LABS: Anion Gap 7 (5-15); Calcium 8.9 mg/dL (8.7-10.4); Carbon Dioxide 23 mmol/L (20-30); Chloride 107 mmol/L (98-107); Potassium 3.9 mmol/L (3.5-5.1); Sodium 137 mmol/L (136-145)
[2024-01-13 07:04] LABS: BUN/Creatinine Ratio 7.4 (10.0-20.0); Blood Urea Nitrogen 10 mg/dL (9-23); Glucose 137 mg/dL (74-106)
[2024-01-13] MEDS ORDERED: MIDAZOLAM HCL 2MG/2ML 2ml VIAL (1mg/ml) ONE (07:28)
[2024-01-13] MEDS ORDERED: fentaNYL CITRATE 5 ML ONE (07:28)
[2024-01-13] MEDS ORDERED: ROCURONIUM 10MG/ML 10ML VIAL IV ONE (07:33)
[2024-01-13] MEDS ORDERED: LIDOCAINE 2% (LOCAL ANESTH.) PF 5ml SDV ONE (07:33)
[2024-01-13] MEDS ORDERED: PROPOFOL 10 MG/ML 20 ML IV ONE (07:33)
[2024-01-13] MEDS ORDERED: ONDANSETRON HCL 4 MG/2 ML VIAL ONE (07:33)
[2024-01-13] MEDS: SUCCINYLCHOLINE CHLORIDE 20 MG/ML 10ML VIAL IV ONE (07:34)
[2024-01-13 07:39] LABS: Red Cell Distribution Width 22.7 % (11.8-14.3)
[2024-01-13 07:41] LABS: Band Neutrophils % (manual) 0; Basophils % (manual) 0 (0.0-2.0); Blast Cells 0; Metamyelocytes % 0; Myelocytes % 0; Promyelocytes % 0; Reactive Lymphocytes 0
[2024-01-13] MEDS: ONDANSETRON HCL 4 MG/2 ML VIAL IV ONE (08:30)
[2024-01-13] MEDS ORDERED: HYDROmorphone HCL 2 MG/ML VL/or syr IV PRN (08:30)
[2024-01-13] MEDS: POVIDONE IODINE 10 % TOPICAL OINT 30GM TOP ONE (08:51)
[2024-01-13] MEDS ORDERED: GLYCOPYRROLATE 0.2 MG/ML 1ML VIAL ONE ×2 (09:00→09:11)
[2024-01-13] MEDS ORDERED: NEOSTIGMINE 1 MG/ML INJ (10mg/10ML VIAL) ONE (09:00)
[2024-01-13] MEDS: HYDROmorphone HCL 2 MG/ML VL/or syr IV PRN ×2 (10:12→16:47)
[2024-01-13 12:16] LABS: Eosinophils % (manual) 6 (0-7); Hypochromia Moderate; Lymphocytes % (manual) 13 (10.0-50.0); Monocytes % (manual) 8 (0-12); Platelet Estimate Adequate
[2024-01-13 12:17] LABS: Anisocytosis Slight
[2024-01-14] VITALS (8 sets, daily range): BP systolic 109–144; BP diastolic 60–84; PULSE 66–97; RESP 17–80; TEMP 98–99; O2SAT 0–97
[2024-01-14 07:00] LABS: Basophils # (auto) 0 10 ^3/uL (0-0.2); Eosinophils # (auto) 0.3 10 ^3/uL (0-0.8); Monocytes # (auto) 1.2 10 ^3/uL (0-1.3)
[2024-01-14 07:01] LABS: Basophils % (auto) 0.3 % (0.0-2.0); Eosinophils % (auto) 3.8 % (0.0-7.0); Hematocrit 33.4 % (41.0-53.0); Hemoglobin 10.6 g/dL (13.5-17.5); Lymphocytes # (auto) 1.3 10 ^3/uL (0.4-5.4); Lymphocytes % (auto) 14.5 % (10.0-50.0); Mean Corpuscular Hgb Conc. 31.9 g/dL (32.0-36.0); Mean Corpuscular Volume 65.8 fL (80.0-100.0); Monocytes % (auto) 13.7 % (0.0-12.0); Neutrophils % (auto) 67.7 % (37.0-80.0); Nucleated Red Blood Cells % 0.1 %; Red Blood Cells 5.07 10^6/uL (4.5-5.90); White Blood Cell 8.9 10^3/uL (4.4-10.8)
[2024-01-14 07:20] LABS: Red Cell Distribution Width 23.1 % (11.8-14.3)
[2024-01-14] MEDS: FUROSEMIDE 40 MG/4 ML VIAL IV ONE (09:17)
[2024-01-14] MEDS: hydrALAZINE HCL 20 MG/ML VL IV PRN (12:45)
[2024-01-15] VITALS (22 sets, daily range): BP systolic 131–164; BP diastolic 66–82; PULSE 67–87; RESP 16–23; TEMP 97.8–100.8; O2SAT 85–99
[2024-01-15] MEDS: FUROSEMIDE 40 MG/4 ML VIAL IV ONE ×3 (11:29→18:06)
[2024-01-15 12:56] LABS: Base Excess -0.8 mmol/L (-2.0-2.0)
[2024-01-15] MEDS: IPRATROPIUM BROM 0.5 MG/2.5ML INH SOL NEB ONE (15:07)
[2024-01-15] MEDS: ALBUTEROL SULF 2.5 MG/0.5ML(0.5%) NEB SOLN NEB ONE (15:07)
[2024-01-15] MEDS: ENOXAPARIN SOD 30 MG/0.3 ML SYRINGE SC ONE (15:47)
[2024-01-15 16:23] LABS: Base Excess -1.3 mmol/L (-2.0-2.0)
[2024-01-15] MEDS: FUROSEMIDE 40 MG/4 ML VIAL IV SCH (18:07)
[2024-01-15] MEDS: ALBUTEROL SULF 2.5 MG/0.5ML(0.5%) NEB SOLN NEB SCH (18:34)
[2024-01-15] MEDS: IPRATROPIUM BROM 0.5 MG/2.5ML INH SOL NEB SCH (18:34)
[2024-01-15] MEDS: LIDOCAINE 2%HCL (LOCAL ANESTH.) INJ 20ML MDV ONE (19:19)
[2024-01-16] VITALS (73 sets, daily range): BP systolic 87–167; BP diastolic 8–98; PULSE 40–99; RESP 14–22; TEMP 98.2–99.9; O2SAT 82–100
[2024-01-16] MEDS: fentaNYL CITRATE 100 MCG/2 ML VL ONE (00:25)
[2024-01-16] MEDS: IODIXANOL 320MG/ML 100ML BTL IV ONE (00:25)
[2024-01-16] MEDS: MIDAZOLAM HCL 2MG/2ML 2ml VIAL (1mg/ml) ONE (00:26)
[2024-01-16 05:25] LABS: Basophils # (auto) 0 10 ^3/uL (0-0.2); Basophils % (auto) 0.3 % (0.0-2.0); Monocytes # (auto) 1.1 10 ^3/uL (0-1.3)
[2024-01-16 05:28] LABS: Eosinophils # (auto) 0.4 10 ^3/uL (0-0.8); Eosinophils % (auto) 3.6 % (0.0-7.0); Hematocrit 33.4 % (41.0-53.0); Hemoglobin 10.7 g/dL (13.5-17.5); Lymphocytes # (auto) 1.3 10 ^3/uL (0.4-5.4); Lymphocytes % (auto) 11.6 % (10.0-50.0); Mean Corpuscular Hemoglobin 20.7 pg (28.0-32.0); Mean Corpuscular Hgb Conc. 31.9 g/dL (32.0-36.0); Neutrophils # (auto) 8.4 10 ^3/uL (1.6-8.6); Neutrophils % (auto) 74.5 % (37.0-80.0); Red Blood Cells 5.14 10^6/uL (4.5-5.90); White Blood Cell 11.3 10^3/uL (4.4-10.8)
[2024-01-16 05:37] LABS: Chloride 104 mmol/L (98-107); Potassium 3.6 mmol/L (3.5-5.1); Sodium 140 mmol/L (136-145)
[2024-01-16 05:38] LABS: Anion Gap 8 (5-15); Calcium 8.7 mg/dL (8.7-10.4); Carbon Dioxide 28 mmol/L (20-30)
[2024-01-16 05:43] LABS: BUN/Creatinine Ratio 9.5 (10.0-20.0); Blood Urea Nitrogen 16 mg/dL (9-23); Glucose 170 mg/dL (74-106)
[2024-01-16] MEDS: ENOXAPARIN SOD 30 MG/0.3 ML SYRINGE SC SCH (08:56)
[2024-01-16 09:05] LABS: Base Excess 1.2 mmol/L (-2.0-2.0)
[2024-01-16] MEDS: NOREPINEPHRINE 8 MG/250ML KIT 250 ML IV SCH (09:15)
[2024-01-16] MEDS: ETOMIDATE (2MG/ML) 20ML VIAL IV ONE (09:21)
[2024-01-16] MEDS: ROCURONIUM 10MG/ML 10ML VIAL IV ONE (09:21)
[2024-01-16] MEDS: ONDANSETRON HCL 4 MG/2 ML VIAL IV PRN (09:31)
[2024-01-16] MEDS: PROPOFOL 100 ML IV SCH (09:40)
[2024-01-16] MEDS: fentaNYL Drip 2500mCg/250mlNS 250 ML IV SCH (09:50)
[2024-01-16 10:42] LABS: Base Excess 0.3 mmol/L (-2.0-2.0)
[2024-01-16 11:32] LABS: INR 1.21 (0.9-1.15); Partial Thromboplastin Time 26.7 SEC (24.5-34.5); Prothrombin Time 12.6 sec (9.3-11.8)
[2024-01-16] MEDS ORDERED: LIDOCAINE 2%HCL (LOCAL ANESTH.) INJ 20ML MDV ONE (12:11)
[2024-01-16] MEDS ORDERED: EPINEPHrine HCL 1 MG/1 ML AMP ONE (12:11)
[2024-01-16] MEDS ORDERED: LIDOCAINE 2% JELLY 11ml (GLYDO) ONE (12:11)
[2024-01-16] MEDS ORDERED: GLYCOPYRROLATE 0.2 MG/ML 1ML VIAL ONE (12:11)
[2024-01-16] MEDS ORDERED: fentaNYL CITRATE 100 MCG/2 ML VL ONE (12:12)
[2024-01-16] MEDS ORDERED: MIDAZOLAM HCL 5 MG/ML-1ML VIAL ONE (12:12)
[2024-01-17] VITALS (106 sets, daily range): BP systolic 91–136; BP diastolic 58–74; PULSE 69–83; RESP 16–20; TEMP 98.4–99.9; O2SAT 92–99
[2024-01-17 04:00] LABS: Basophils # (auto) 0 10 ^3/uL (0-0.2); Eosinophils # (auto) 0.6 10 ^3/uL (0-0.8); Eosinophils % (auto) 6.6 % (0.0-7.0); Hematocrit 30.7 % (41.0-53.0); Lymphocytes # (auto) 1.4 10 ^3/uL (0.4-5.4); Lymphocytes % (auto) 15.6 % (10.0-50.0)
[2024-01-17 04:05] LABS: Basophils % (auto) 0.3 % (0.0-2.0); Hemoglobin 9.9 g/dL (13.5-17.5); Mean Corpuscular Hgb Conc. 32.1 g/dL (32.0-36.0); Mean Corpuscular Volume 65.3 fL (80.0-100.0); Monocytes # (auto) 0.7 10 ^3/uL (0-1.3); Monocytes % (auto) 8.2 % (0.0-12.0); Neutrophils # (auto) 6.2 10 ^3/uL (1.6-8.6); Neutrophils % (auto) 69.3 % (37.0-80.0); Red Blood Cells 4.69 10^6/uL (4.5-5.90)
[2024-01-17 04:12] LABS: Red Cell Distribution Width 23.1 % (11.8-14.3)
[2024-01-17 04:16] LABS: Alanine Aminotransferase 159 U/L (7-40); Albumin 3.4 g/dL (3.2-4.8); Alkaline Phosphatase 90 U/L (46-116); Anion Gap 13 (5-15); Aspartate Aminotransferase 57 U/L (13-40); BUN/Creatinine Ratio 6.6 (10.0-20.0); Bilirubin, Total 0.7 mg/dL (0.2-1.0); Blood Urea Nitrogen 19 mg/dL (9-23); Calcium 8.4 mg/dL (8.7-10.4); Carbon Dioxide 27 mmol/L (20-30); Chloride 100 mmol/L (98-107); Glucose 157 mg/dL (74-106); Potassium 3.3 mmol/L (3.5-5.1); Sodium 140 mmol/L (136-145); Total Protein 7.2 g/dL (5.7-8.2)
[2024-01-17 08:04] LABS: Base Excess -1.9 mmol/L (-2.0-2.0)
[2024-01-17] MEDS: POTASSIUM CHL 20MEQ/100ML 100 ML IV SCH (08:28)
[2024-01-17] MEDS: MEROPENEM 1GM IVPB 50 ML IV ONE (10:29)
[2024-01-17] MEDS ORDERED: LINEZOLID 600MG/300ML 300 ML IV SCH (12:00)
[2024-01-17] MEDS ORDERED: Glucerna 1.2 Cal 1Liter BOTTLE GT SCH (12:30)
[2024-01-17] MEDS: SODIUM CHLORIDE 0.9% 1,000 ML IV ONE (15:01)
[2024-01-17 15:13] LABS: Urine Bacteria None Seen /hpf (None Seen)
[2024-01-17 15:18] LABS: Urine Amorphous Crystal FEW /hpf (None Seen); Urine Blood 2+ /uL (Negative); Urine Clarity Ex.Turbid (Clear); Urine Color Yellow (Yellow); Urine Mucus FEW (None Seen); Urine Protein, UAD 1+ (Negative); Urine Specific Gravity 1.026 (1.001-1.035); Urine Urobilinogen Normal (Negative); Urine WBC 15 /hpf (0 - 3)
[2024-01-17 15:31] LABS: Base Excess -1.1 mmol/L (-2.0-2.0)
[2024-01-17 15:34] LABS: Creatinine, Urine 195.98 mg/dL (30.0-125.0)
[2024-01-18] VITALS (110 sets, daily range): BP systolic 97–178; BP diastolic 56–84; PULSE 63–99; RESP 11–29; TEMP 98.1–100.4; O2SAT 93–100
[2024-01-18 04:05] LABS: Eosinophils # (auto) 0.6 10 ^3/uL (0-0.8); Hematocrit 30.4 % (41.0-53.0); Lymphocytes # (auto) 1.4 10 ^3/uL (0.4-5.4)
[2024-01-18 04:08] LABS: Basophils # (auto) 0 10 ^3/uL (0-0.2); Basophils % (auto) 0.2 % (0.0-2.0); Hemoglobin 9.6 g/dL (13.5-17.5); Lymphocytes % (auto) 17.4 % (10.0-50.0); Mean Corpuscular Hemoglobin 20.6 pg (28.0-32.0); Mean Corpuscular Hgb Conc. 31.6 g/dL (32.0-36.0); Mean Corpuscular Volume 65.2 fL (80.0-100.0); Monocytes # (auto) 0.8 10 ^3/uL (0-1.3); Monocytes % (auto) 9.8 % (0.0-12.0); Neutrophils # (auto) 5.2 10 ^3/uL (1.6-8.6); Neutrophils % (auto) 64.6 % (37.0-80.0); Red Blood Cells 4.66 10^6/uL (4.5-5.90); Red Cell Distribution Width 23.1 % (11.8-14.3); White Blood Cell 8.1 10^3/uL (4.4-10.8)
[2024-01-18 04:16] LABS: Anion Gap 14 (5-15); Carbon Dioxide 23 mmol/L (20-30); Chloride 102 mmol/L (98-107); Potassium 3.7 mmol/L (3.5-5.1); Sodium 139 mmol/L (136-145)
[2024-01-18 04:17] LABS: Calcium 8.6 mg/dL (8.7-10.4)
[2024-01-18 04:22] LABS: Blood Urea Nitrogen 24 mg/dL (9-23); Glucose 150 mg/dL (74-106)
[2024-01-18] MEDS: FUROSEMIDE 40 MG/4 ML VIAL IV ONE (07:43)
[2024-01-18 08:03] LABS: Base Excess -3.9 mmol/L (-2.0-2.0)
[2024-01-18 14:41] LABS: Base Excess -4.2 mmol/L (-2.0-2.0)
[2024-01-18] MEDS: ACETAMINOPHEN 325 MG TAB PO PRN (16:23)
[2024-01-18] MEDS: FUROSEMIDE 100 MG/10ML VIAL IV SCH (17:00)
[2024-01-19] VITALS (92 sets, daily range): BP systolic 118–176; BP diastolic 69–87; PULSE 63–98; RESP 12–35; TEMP 98.1–99.3; O2SAT 87–100
[2024-01-19 03:56] LABS: Basophils # (auto) 0 10 ^3/uL (0-0.2); Eosinophils # (auto) 0.4 10 ^3/uL (0-0.8)
[2024-01-19 03:59] LABS: Basophils % (auto) 0.4 % (0.0-2.0); Eosinophils % (auto) 4.7 % (0.0-7.0); Hematocrit 29.5 % (41.0-53.0); Hemoglobin 9.5 g/dL (13.5-17.5); Lymphocytes # (auto) 1.2 10 ^3/uL (0.4-5.4); Lymphocytes % (auto) 15.5 % (10.0-50.0); Mean Corpuscular Hemoglobin 20.8 pg (28.0-32.0); Mean Corpuscular Hgb Conc. 32.3 g/dL (32.0-36.0); Mean Corpuscular Volume 64.4 fL (80.0-100.0); Monocytes # (auto) 0.6 10 ^3/uL (0-1.3); Monocytes % (auto) 8.5 % (0.0-12.0); Neutrophils # (auto) 5.4 10 ^3/uL (1.6-8.6); Neutrophils % (auto) 70.9 % (37.0-80.0); Red Blood Cells 4.59 10^6/uL (4.5-5.90); White Blood Cell 7.6 10^3/uL (4.4-10.8)
[2024-01-19 04:00] LABS: Red Cell Distribution Width 22.7 % (11.8-14.3)
[2024-01-19 04:01] LABS: Alanine Aminotransferase 127 U/L (7-40); Albumin 3.4 g/dL (3.2-4.8); Alkaline Phosphatase 104 U/L (46-116); Anion Gap 14 (5-15); Aspartate Aminotransferase 54 U/L (13-40); BUN/Creatinine Ratio 8.7 (10.0-20.0); Bilirubin, Total 0.5 mg/dL (0.2-1.0); Blood Urea Nitrogen 28 mg/dL (9-23); Calcium 8.6 mg/dL (8.7-10.4); Carbon Dioxide 24 mmol/L (20-30); Chloride 104 mmol/L (98-107); Glucose 144 mg/dL (74-106); Magnesium 2.3 mg/dL (1.6-2.6); Potassium 3.9 mmol/L (3.5-5.1); Sodium 142 mmol/L (136-145); Total Protein 7.5 g/dL (5.7-8.2)
[2024-01-19 08:26] LABS: Base Excess -3.7 mmol/L (-2.0-2.0)
[2024-01-19 09:51] LABS: Base Excess -2.3 mmol/L (-2.0-2.0)
[2024-01-19 13:11] LABS: Base Excess -2.8 mmol/L (-2.0-2.0)
[2024-01-19] MEDS ORDERED: FUROSEMIDE 100 MG/10ML VIAL IV SCH (18:00)
[2024-01-19] MEDS: FUROSEMIDE 100 MG/10ML VIAL IV SCH (18:25)
[2024-01-20] VITALS (32 sets, daily range): BP systolic 121–185; BP diastolic 58–142; PULSE 74–97; RESP 14–26; TEMP 98.8–99.7; O2SAT 64–96
[2024-01-20 03:58] LABS: Basophils # (auto) 0.1 10 ^3/uL (0-0.2); Eosinophils # (auto) 0.3 10 ^3/uL (0-0.8); White Blood Cell 7.6 10^3/uL (4.4-10.8)
[2024-01-20 04:03] LABS: Basophils % (auto) 0.7 % (0.0-2.0); Eosinophils % (auto) 3.5 % (0.0-7.0); Hematocrit 31.9 % (41.0-53.0); Lymphocytes % (auto) 12.8 % (10.0-50.0); Mean Corpuscular Hemoglobin 20.6 pg (28.0-32.0); Mean Corpuscular Hgb Conc. 31.5 g/dL (32.0-36.0); Mean Corpuscular Volume 65.3 fL (80.0-100.0); Monocytes # (auto) 0.8 10 ^3/uL (0-1.3); Neutrophils # (auto) 5.5 10 ^3/uL (1.6-8.6); Red Blood Cells 4.87 10^6/uL (4.5-5.90)
[2024-01-20 04:08] LABS: Chloride 108 mmol/L (98-107); Sodium 145 mmol/L (136-145)
[2024-01-20 04:09] LABS: Anion Gap 12 (5-15); Calcium 8.8 mg/dL (8.7-10.4); Carbon Dioxide 25 mmol/L (20-30)
[2024-01-20 04:14] LABS: BUN/Creatinine Ratio 13.7 (10.0-20.0); Blood Urea Nitrogen 34 mg/dL (9-23); Glucose 144 mg/dL (74-106)
[2024-01-20 05:13] LABS: Anisocytosis Slight; Hypochromia Marked; Large Platelets FEW; Ovalocytes MODERATE; Platelet Estimate Adequate
[2024-01-20] MEDS: LABETALOL HCL 20 MG/4 ML VL IV PRN (09:01)
[2024-01-20] MEDS: CEFEPIME 1GM/ 50ML 50 ML IV SCH (14:27)
[2024-01-21] VITALS (34 sets, daily range): BP systolic 119–147; BP diastolic 65–83; PULSE 70–86; RESP 16–22; TEMP 98.8–99.7; O2SAT 92–97
[2024-01-21 03:54] LABS: Basophils # (auto) 0 10 ^3/uL (0-0.2)
[2024-01-21 03:59] LABS: Basophils % (auto) 0.5 % (0.0-2.0); Eosinophils # (auto) 0.2 10 ^3/uL (0-0.8); Eosinophils % (auto) 2.7 % (0.0-7.0); Hematocrit 32.7 % (41.0-53.0); Hemoglobin 10.2 g/dL (13.5-17.5); Lymphocytes # (auto) 1.2 10 ^3/uL (0.4-5.4); Lymphocytes % (auto) 14.7 % (10.0-50.0); Mean Corpuscular Hemoglobin 20.2 pg (28.0-32.0); Mean Corpuscular Hgb Conc. 31.1 g/dL (32.0-36.0); Mean Corpuscular Volume 65.1 fL (80.0-100.0); Monocytes % (auto) 11.9 % (0.0-12.0); Neutrophils # (auto) 5.7 10 ^3/uL (1.6-8.6); Neutrophils % (auto) 70.2 % (37.0-80.0); Red Blood Cells 5.02 10^6/uL (4.5-5.90); White Blood Cell 8.2 10^3/uL (4.4-10.8)
[2024-01-21 04:00] LABS: Red Cell Distribution Width 22.8 % (11.8-14.3)
[2024-01-21 04:09] LABS: Alanine Aminotransferase 186 U/L (7-40); Albumin 3.5 g/dL (3.2-4.8); Alkaline Phosphatase 99 U/L (46-116); Anion Gap 11 (5-15); Aspartate Aminotransferase 114 U/L (13-40); BUN/Creatinine Ratio 16.3 (10.0-20.0); Blood Urea Nitrogen 35 mg/dL (9-23); Calcium 8.8 mg/dL (8.7-10.4); Carbon Dioxide 26 mmol/L (20-30); Chloride 107 mmol/L (98-107); Glucose 156 mg/dL (74-106); Magnesium 2.4 mg/dL (1.6-2.6); Potassium 3.7 mmol/L (3.5-5.1); Sodium 144 mmol/L (136-145)
[2024-01-21 04:10] LABS: Bilirubin, Total 0.4 mg/dL (0.2-1.0); Total Protein 8.1 g/dL (5.7-8.2)
[2024-01-21] MEDS: FUROSEMIDE 40 MG/4 ML VIAL IV ONE (09:53)
[2024-01-21] MEDS: POTASSIUM EFFERVESENT TAB 25 MEQ PO ONE (09:53)
[2024-01-21] MEDS: ACETAMINOPHEN 325 MG TAB PO PRN (10:02)
[2024-01-21] MEDS: FUROSEMIDE 40 MG/4 ML VIAL IV SCH (17:38)
[2024-01-21] MEDS: Glucerna Carbsteady SHAKE Vanilla 8oz PO SCH (17:39)
[2024-01-21] MEDS: ALBUTEROL SULF 2.5 MG/0.5ML(0.5%) NEB SOLN NEB SCH (18:31)
[2024-01-21] MEDS: ACETYLCYSTEINE 10 %(100MG/ML) SOL 4ML NEB SCH (18:31)
[2024-01-21] MEDS: IPRATROPIUM BROM 0.5 MG/2.5ML INH SOL NEB SCH ×2 (18:31→22:43)
[2024-01-21] MEDS: HYDROCORTISONE SOD SUCC 100 MG/2ML INJ VIAL IV SCH (21:30)
[2024-01-22] VITALS (27 sets, daily range): BP systolic 118–155; BP diastolic 63–83; PULSE 60–79; RESP 13–24; TEMP 97.3–99.5; O2SAT 90–95
[2024-01-22 04:31] LABS: Eosinophils # (auto) 0 10 ^3/uL (0-0.8); Mean Corpuscular Hemoglobin 20.5 pg (28.0-32.0); Monocytes # (auto) 0.2 10 ^3/uL (0-1.3)
[2024-01-22 04:33] LABS: Basophils # (auto) 0 10 ^3/uL (0-0.2); Basophils % (auto) 0.6 % (0.0-2.0); Eosinophils % (auto) 0.3 % (0.0-7.0); Hematocrit 32.5 % (41.0-53.0); Hemoglobin 10.2 g/dL (13.5-17.5); Lymphocytes # (auto) 0.8 10 ^3/uL (0.4-5.4); Lymphocytes % (auto) 10.6 % (10.0-50.0); Mean Corpuscular Hgb Conc. 31.5 g/dL (32.0-36.0); Monocytes % (auto) 3.3 % (0.0-12.0); Neutrophils # (auto) 6.3 10 ^3/uL (1.6-8.6); Neutrophils % (auto) 85.2 % (37.0-80.0); White Blood Cell 7.4 10^3/uL (4.4-10.8)
[2024-01-22 04:38] LABS: Alanine Aminotransferase 174 U/L (7-40); Alkaline Phosphatase 102 U/L (46-116); Anion Gap 8 (5-15); BUN/Creatinine Ratio 20.2 (10.0-20.0); Blood Urea Nitrogen 43 mg/dL (9-23); Carbon Dioxide 27 mmol/L (20-30); Chloride 104 mmol/L (98-107); Magnesium 2.2 mg/dL (1.6-2.6); Potassium 4.7 mmol/L (3.5-5.1); Sodium 139 mmol/L (136-145)
[2024-01-22 04:39] LABS: Albumin 3.8 g/dL (3.2-4.8); Aspartate Aminotransferase 85 U/L (13-40); Bilirubin, Total 0.4 mg/dL (0.2-1.0)
[2024-01-22 04:40] LABS: Total Protein 8.2 g/dL (5.7-8.2)
[2024-01-22 04:52] LABS: Glucose 271 mg/dL (74-106)
[2024-01-22] MEDS ORDERED: DEXTROSE (50%) 50ML SYRG IV PRN ×2 (07:00→17:45)
[2024-01-22] MEDS: ACCU-CHEK COMFORT CURVE STRIP VI SCH ×2 (08:56→22:20)
[2024-01-22] MEDS: INSULIN LANTUS (GLARGINE) 1 /0.01ml (100units/ml) SC SCH ×2 (08:56→22:19)
[2024-01-22] MEDS: InsuLIN REG 1unit/0.01ml Soln (100units/ml) SC SCH ×2 (09:01→22:20)
[2024-01-22] MEDS: CEFEPIME 2GM/50ML NS 50 ML IV SCH (10:30)
[2024-01-22 11:19] LABS: Urine Bacteria FEW /hpf (None Seen); Urine Blood 2+ /uL (Negative); Urine Budding Yeast FEW /hpf (None Seen); Urine Clarity Turbid (Clear); Urine Color Light-Yellow (Yellow); Urine Mucus FEW (None Seen); Urine Protein, UAD 1+ (Negative); Urine Specific Gravity 1.012 (1.001-1.035); Urine Urobilinogen Normal (Negative); Urine WBC 17 /hpf (0 - 3)
[2024-01-22] MEDS ORDERED: InsuLIN REG 1unit/0.01ml Soln (100units/ml) SC SCH (22:00)
[2024-01-23] VITALS (26 sets, daily range): BP systolic 117–149; BP diastolic 64–76; PULSE 56–70; RESP 14–22; TEMP 97.9–99; O2SAT 92–99
[2024-01-23 04:18] LABS: Basophils # (auto) 0 10 ^3/uL (0-0.2); Basophils % (auto) 0.3 % (0.0-2.0); Eosinophils # (auto) 0 10 ^3/uL (0-0.8); Hemoglobin 10.2 g/dL (13.5-17.5); White Blood Cell 6.2 10^3/uL (4.4-10.8)
[2024-01-23 04:20] LABS: Eosinophils % (auto) 0.3 % (0.0-7.0); Hematocrit 32.5 % (41.0-53.0); Lymphocytes # (auto) 0.8 10 ^3/uL (0.4-5.4); Lymphocytes % (auto) 12.3 % (10.0-50.0); Mean Corpuscular Hemoglobin 20.6 pg (28.0-32.0); Mean Corpuscular Hgb Conc. 31.3 g/dL (32.0-36.0); Mean Corpuscular Volume 65.8 fL (80.0-100.0); Monocytes # (auto) 0.4 10 ^3/uL (0-1.3); Monocytes % (auto) 5.9 % (0.0-12.0); Neutrophils % (auto) 81.2 % (37.0-80.0); Red Blood Cells 4.93 10^6/uL (4.5-5.90)
[2024-01-23 04:36] LABS: Red Cell Distribution Width 22.6 % (11.8-14.3)
[2024-01-23 04:39] LABS: Alanine Aminotransferase 154 U/L (7-40); Albumin 3.5 g/dL (3.2-4.8); Alkaline Phosphatase 88 U/L (46-116); Anion Gap 8 (5-15); Aspartate Aminotransferase 60 U/L (13-40); BUN/Creatinine Ratio 22.2 (10.0-20.0); Bilirubin, Total 0.4 mg/dL (0.2-1.0); Blood Urea Nitrogen 41 mg/dL (9-23); Calcium 8.8 mg/dL (8.7-10.4); Carbon Dioxide 26 mmol/L (20-30); Chloride 102 mmol/L (98-107); Glucose 216 mg/dL (74-106); Magnesium 2.2 mg/dL (1.6-2.6); Potassium 4.2 mmol/L (3.5-5.1); Sodium 136 mmol/L (136-145)
[2024-01-23 04:40] LABS: Total Protein 7.9 g/dL (5.7-8.2)
[2024-01-23] MEDS: InsuLIN REG 1unit/0.01ml Soln (100units/ml) SC SCH (06:31)
[2024-01-24] VITALS (32 sets, daily range): BP systolic 113–167; BP diastolic 51–87; PULSE 57–82; RESP 14–99; TEMP 97.4–98.6; O2SAT 17–99
[2024-01-24 05:54] LABS: Alkaline Phosphatase 80 U/L (46-116); Anion Gap 9 (5-15); Aspartate Aminotransferase 46 U/L (13-40); BUN/Creatinine Ratio 25.3 (10.0-20.0); Blood Urea Nitrogen 48 mg/dL (9-23); Calcium 8.8 mg/dL (8.7-10.4); Carbon Dioxide 25 mmol/L (20-30); Chloride 101 mmol/L (98-107); Potassium 4.4 mmol/L (3.5-5.1); Sodium 135 mmol/L (136-145)
[2024-01-24 05:55] LABS: Glucose 316 mg/dL (74-106); Magnesium 2.2 mg/dL (1.6-2.6)
[2024-01-24 05:56] LABS: Albumin 3.5 g/dL (3.2-4.8); Bilirubin, Total 0.4 mg/dL (0.2-1.0); Total Protein 7.6 g/dL (5.7-8.2)
[2024-01-24 06:11] LABS: Alanine Aminotransferase 138 U/L (7-40)
[2024-01-24] MEDS ORDERED: DEXTROSE (50%) 50ML SYRG IV PRN (07:15)
[2024-01-24 07:23] LABS: Basophils # (auto) 0 10 ^3/uL (0-0.2); Eosinophils # (auto) 0 10 ^3/uL (0-0.8); Eosinophils % (auto) 0.1 % (0.0-7.0); Lymphocytes # (auto) 1.2 10 ^3/uL (0.4-5.4); Monocytes # (auto) 0.4 10 ^3/uL (0-1.3); Nucleated Red Blood Cells % 0.1 %
[2024-01-24 07:25] LABS: Basophils % (auto) 0.2 % (0.0-2.0); Hemoglobin 10.1 g/dL (13.5-17.5); Lymphocytes % (auto) 16.2 % (10.0-50.0); Mean Corpuscular Hemoglobin 20.9 pg (28.0-32.0); Mean Corpuscular Hgb Conc. 31.6 g/dL (32.0-36.0); Mean Corpuscular Volume 66.2 fL (80.0-100.0); Monocytes % (auto) 5.8 % (0.0-12.0); Neutrophils # (auto) 5.8 10 ^3/uL (1.6-8.6); Neutrophils % (auto) 77.7 % (37.0-80.0); Red Blood Cells 4.83 10^6/uL (4.5-5.90); White Blood Cell 7.4 10^3/uL (4.4-10.8)
[2024-01-24 07:39] LABS: Red Cell Distribution Width 22.7 % (11.8-14.3)
[2024-01-24] MEDS: ACCU-CHEK COMFORT CURVE STRIP VI SCH (08:28)
[2024-01-24] MEDS: InsuLIN REG 1unit/0.01ml Soln (100units/ml) SC SCH (08:38)
[2024-01-24] MEDS: HYDROCORTISONE SOD SUCC 100 MG/2ML INJ VIAL IV SCH (10:38)
[2024-01-24] MEDS: FUROSEMIDE 100 MG/10ML VIAL IV SCH (18:08)
[2024-01-24] MEDS: INSULIN LANTUS (GLARGINE) 1 /0.01ml (100units/ml) SC SCH (22:06)
[2024-01-25] VITALS (35 sets, daily range): BP systolic 113–163; BP diastolic 51–78; PULSE 56–82; RESP 13–26; TEMP 97.2–98.7; O2SAT 85–100
[2024-01-25] MEDS: INSULIN LANTUS (GLARGINE) 1 /0.01ml (100units/ml) SC SCH (06:04)
[2024-01-25 06:16] LABS: Eosinophils # (auto) 0.2 10 ^3/uL (0-0.8); Eosinophils % (auto) 2.6 % (0.0-7.0); Red Cell Distribution Width 22.9 % (11.8-14.3)
[2024-01-25 06:19] LABS: Basophils # (auto) 0.1 10 ^3/uL (0-0.2); Basophils % (auto) 1.1 % (0.0-2.0); Hematocrit 31.7 % (41.0-53.0); Lymphocytes # (auto) 2.4 10 ^3/uL (0.4-5.4); Lymphocytes % (auto) 27.8 % (10.0-50.0); Mean Corpuscular Hgb Conc. 31.6 g/dL (32.0-36.0); Mean Corpuscular Volume 66.3 fL (80.0-100.0); Monocytes # (auto) 1.1 10 ^3/uL (0-1.3); Monocytes % (auto) 12.3 % (0.0-12.0); Neutrophils # (auto) 4.8 10 ^3/uL (1.6-8.6); Neutrophils % (auto) 56.2 % (37.0-80.0); Nucleated Red Blood Cells % 0.1 %; Red Blood Cells 4.77 10^6/uL (4.5-5.90); White Blood Cell 8.6 10^3/uL (4.4-10.8)
[2024-01-25 06:38] LABS: Alanine Aminotransferase 121 U/L (7-40); Albumin 3.5 g/dL (3.2-4.8); Alkaline Phosphatase 75 U/L (46-116); Anion Gap 9 (5-15); Blood Urea Nitrogen 42 mg/dL (9-23); Calcium 8.9 mg/dL (8.7-10.4); Carbon Dioxide 25 mmol/L (20-30); Chloride 104 mmol/L (98-107); Magnesium 2.2 mg/dL (1.6-2.6); Potassium 3.4 mmol/L (3.5-5.1); Sodium 138 mmol/L (136-145)
[2024-01-25 06:39] LABS: Bilirubin, Total 0.3 mg/dL (0.2-1.0); Total Protein 7.9 g/dL (5.7-8.2)
[2024-01-25 06:43] LABS: Aspartate Aminotransferase 34 U/L (13-40)
[2024-01-25 06:46] LABS: Glucose 181 mg/dL (74-106)
[2024-01-25 07:11] LABS: BUN/Creatinine Ratio 21.8 (10.0-20.0)
[2024-01-25] MEDS: POTASSIUM EFFERVESENT TAB 25 MEQ PO ONE (08:56)
[2024-01-25] MEDS: HYDROcodone-ACET 5/325MG TAB PO PRN (09:04)
[2024-01-25] MEDS: ISOSORBIDE MONONITRATE 20 MG TAB PO SCH (11:00)
[2024-01-25] MEDS: hydrALAZINE HCL 25 MG TAB PO SCH (12:13)
[2024-01-26] VITALS (30 sets, daily range): BP systolic 99–149; BP diastolic 48–78; PULSE 56–92; RESP 11–22; TEMP 97.7–98.8; O2SAT 90–100
[2024-01-26 05:28] LABS: Basophils # (auto) 0 10 ^3/uL (0-0.2); Eosinophils # (auto) 0.3 10 ^3/uL (0-0.8); Eosinophils % (auto) 3.2 % (0.0-7.0); Monocytes # (auto) 1.2 10 ^3/uL (0-1.3)
[2024-01-26 05:33] LABS: Basophils % (auto) 0.3 % (0.0-2.0); Hematocrit 30.3 % (41.0-53.0); Hemoglobin 9.6 g/dL (13.5-17.5); Lymphocytes # (auto) 2.1 10 ^3/uL (0.4-5.4); Lymphocytes % (auto) 21.7 % (10.0-50.0); Mean Corpuscular Hemoglobin 20.7 pg (28.0-32.0); Mean Corpuscular Hgb Conc. 31.7 g/dL (32.0-36.0); Mean Corpuscular Volume 65.3 fL (80.0-100.0); Monocytes % (auto) 11.9 % (0.0-12.0); Neutrophils # (auto) 6.2 10 ^3/uL (1.6-8.6); Neutrophils % (auto) 62.9 % (37.0-80.0); Nucleated Red Blood Cells % 0.1 %; Red Blood Cells 4.65 10^6/uL (4.5-5.90); White Blood Cell 9.8 10^3/uL (4.4-10.8)
[2024-01-26 05:36] LABS: Alanine Aminotransferase 96 U/L (7-40); Albumin 3.4 g/dL (3.2-4.8); Alkaline Phosphatase 67 U/L (46-116); Anion Gap 6 (5-15); Aspartate Aminotransferase 27 U/L (13-40); BUN/Creatinine Ratio 24.5 (10.0-20.0); Blood Urea Nitrogen 46 mg/dL (9-23); Calcium 8.6 mg/dL (8.7-10.4); Carbon Dioxide 28 mmol/L (20-30); Chloride 103 mmol/L (98-107); Glucose 126 mg/dL (74-106); Potassium 3.5 mmol/L (3.5-5.1); Sodium 137 mmol/L (136-145)
[2024-01-26 05:37] LABS: Bilirubin, Total 0.3 mg/dL (0.2-1.0); Total Protein 7.4 g/dL (5.7-8.2)
[2024-01-26 06:31] LABS: Anisocytosis Slight; Hypochromia Slight; Platelet Estimate Adequate
[2024-01-27] VITALS (18 sets, daily range): BP systolic 116–141; BP diastolic 66–76; PULSE 59–79; RESP 16–19; TEMP 97.6–98.9; O2SAT 90–100
[2024-01-27 06:12] LABS: Alanine Aminotransferase 89 U/L (7-40); Albumin 3.7 g/dL (3.2-4.8); Alkaline Phosphatase 72 U/L (46-116); Anion Gap 9 (5-15); Aspartate Aminotransferase 25 U/L (13-40); BUN/Creatinine Ratio 24.3 (10.0-20.0); Blood Urea Nitrogen 46 mg/dL (9-23); Calcium 9.1 mg/dL (8.7-10.4); Carbon Dioxide 27 mmol/L (20-30); Chloride 101 mmol/L (98-107); Glucose 136 mg/dL (74-106); Potassium 3.4 mmol/L (3.5-5.1); Sodium 137 mmol/L (136-145)
[2024-01-27 06:13] LABS: Bilirubin, Total 0.4 mg/dL (0.2-1.0); Total Protein 7.5 g/dL (5.7-8.2)
[2024-01-27 06:17] LABS: Basophils # (auto) 0 10 ^3/uL (0-0.2); Eosinophils # (auto) 0.3 10 ^3/uL (0-0.8); Lymphocytes # (auto) 2.7 10 ^3/uL (0.4-5.4); Lymphocytes % (auto) 28.5 % (10.0-50.0); Neutrophils # (auto) 5.5 10 ^3/uL (1.6-8.6); Red Blood Cells 4.78 10^6/uL (4.5-5.90)
[2024-01-27 06:28] LABS: Basophils % (auto) 0.5 % (0.0-2.0); Eosinophils % (auto) 3.7 % (0.0-7.0); Hematocrit 31.4 % (41.0-53.0); Hemoglobin 9.9 g/dL (13.5-17.5); Mean Corpuscular Hemoglobin 20.7 pg (28.0-32.0); Mean Corpuscular Hgb Conc. 31.5 g/dL (32.0-36.0); Mean Corpuscular Volume 65.7 fL (80.0-100.0); Monocytes # (auto) 0.8 10 ^3/uL (0-1.3); Monocytes % (auto) 8.9 % (0.0-12.0); Neutrophils % (auto) 58.4 % (37.0-80.0); White Blood Cell 9.3 10^3/uL (4.4-10.8)
[2024-01-27 06:31] LABS: Red Cell Distribution Width 22.8 % (11.8-14.3)
[2024-01-27] MEDS: POTASSIUM EFFERVESENT TAB 25 MEQ PO ONE (08:41)
[2024-01-28] MEDS ORDERED: FUROSEMIDE 40 MG/4 ML VIAL IV SCH (10:00)
== END 2024-01-27 19:30 | DRG 853 ==
LOC: ER 10:09 → OVERFLOW 14:01 → WEST WING 22:35 → DOU IN ICU 01-15 14:59 → ICU CENTRL 01-16 09:49 → ICU WEST 01-16 18:09 → DOU IN ICU 01-23 14:35 → TELE-WESTW 01-26 18:30
PROVIDERS: ADMIT Internal Medicine Pulmonary Disease; ATTEND Emergency Medicine
PROC: 0F943ZZ Drainage of Gallbladder, Percutaneous Approach (ICD-10-PCS; 2024-01-07)
PROC: BF131ZZ Fluoroscopy of Gallbladder and Bile Ducts using Low Osmolar Contrast (ICD-10-PCS; 2024-01-07)
PROC: 0FJ44ZZ Inspection of Gallbladder, Percutaneous Endoscopic Approach (ICD-10-PCS; 2024-01-13)
PROC: 0FT40ZZ Resection of Gallbladder, Open Approach (ICD-10-PCS; principal; 2024-01-13 07:25)
PROC: 5A09357 Assistance with Respiratory Ventilation, Less than 24 Consecutive Hours, Continuous Positive Airway Pressure (ICD-10-PCS; 2024-01-15)
PROC: 0B9J8ZZ Drainage of Left Lower Lung Lobe, Via Natural or Artificial Opening Endoscopic (ICD-10-PCS; 2024-01-16)
PROC: 0B9D8ZZ Drainage of Right Middle Lung Lobe, Via Natural or Artificial Opening Endoscopic (ICD-10-PCS; 2024-01-16)
PROC: 0B9F8ZZ Drainage of Right Lower Lung Lobe, Via Natural or Artificial Opening Endoscopic (ICD-10-PCS; 2024-01-16)
PROC: 0BH17EZ Insertion of Endotracheal Airway into Trachea, Via Natural or Artificial Opening (ICD-10-PCS; 2024-01-16)
PROC: 5A1945Z Respiratory Ventilation, 24-96 Consecutive Hours (ICD-10-PCS; 2024-01-16)
PROC: 02HV33Z Insertion of Infusion Device into Superior Vena Cava, Percutaneous Approach (ICD-10-PCS; 2024-01-17)
PROC: 0BC98ZZ Extirpation of Matter from Lingula Bronchus, Via Natural or Artificial Opening Endoscopic (ICD-10-PCS; 2024-01-18)
PROC: 0BC88ZZ Extirpation of Matter from Left Upper Lobe Bronchus, Via Natural or Artificial Opening Endoscopic (ICD-10-PCS; 2024-01-18)
PROC: 0BCB8ZZ Extirpation of Matter from Left Lower Lobe Bronchus, Via Natural or Artificial Opening Endoscopic (ICD-10-PCS; 2024-01-18)
PROC: 0B978ZZ Drainage of Left Main Bronchus, Via Natural or Artificial Opening Endoscopic (ICD-10-PCS; 2024-01-18)
PROC: 5A09357 Assistance with Respiratory Ventilation, Less than 24 Consecutive Hours, Continuous Positive Airway Pressure (ICD-10-PCS; 2024-01-19)
PROC: 5A09357 Assistance with Respiratory Ventilation, Less than 24 Consecutive Hours, Continuous Positive Airway Pressure (ICD-10-PCS; 2024-01-20)
DX: A41.9 Sepsis, unspecified organism (principal); I50.33 Acute on chronic diastolic (congestive) heart failure; J96.01 Acute respiratory failure with hypoxia; J69.0 Pneumonitis due to inhalation of food and vomit; Z68.41 Body mass index [BMI] 40.0-44.9, adult; K80.66 Calculus of gallbladder and bile duct with acute and chronic cholecystitis without obstruction; N17.9 Acute kidney failure, unspecified; I11.0 Hypertensive heart disease with heart failure; I25.10 Atherosclerotic heart disease of native coronary artery without angina pectoris; E11.42 Type 2 diabetes mellitus with diabetic polyneuropathy; E66.01 Morbid (severe) obesity due to excess calories; E78.5 Hyperlipidemia, unspecified; E87.6 Hypokalemia; D50.9 Iron deficiency anemia, unspecified; E88.810 Metabolic syndrome; K76.0 Fatty (change of) liver, not elsewhere classified; Z95.1 Presence of aortocoronary bypass graft; Z93.3 Colostomy status; Z88.1 Allergy status to other antibiotic agents; Z88.8 Allergy status to other drugs, medicaments and biological substances; Z79.899 Other long term (current) drug therapy; Z79.4 Long term (current) use of insulin; Z68.38 Body mass index [BMI] 38.0-38.9, adult; Z82.5 Family history of asthma and other chronic lower respiratory diseases; Z87.19 Personal history of other diseases of the digestive system; Z82.3 Family history of stroke; Z88.3 Allergy status to other anti-infective agents
CPT/HCPCS: 36415; 36600; 47532; 71045; 71250; 74181; 76604; 76705; 76942; 80048; 80053; 80061; 81001; 82247; 82570; 82805; 82962; 83036; 83605; 83690; 83735; 83935; 84300; 85007; 85025; 85027; 85379; 85610; 85730; 86850; 86900; 86901; 87040; 87070; 87077; 87081; 87086; 87205; 92610; 93005; 93306; 93970; 94002; 94003; 94640; 94660; 94667; 94668; 97110; 97116; 97163; 97530; 99152; G0378; J0171; J0330; J0692; J1815; J2001; J2185; J2250; J2405; J2470; J2543; J2704; J3480; J3490; J7060; Q9967

== ENCOUNTER → 2024-04-17 | Outpatient (CLI) | payer OTHER, MEDICAID ==
[~2024-04-17] MED LIST changes: +ATOR-507 PO; +DICL1GEL59 TOP; +DICL1GEL73 EXT; -DULA1INJ SC; +EMPA1TAB3 PO; -INSU1INJ19 SC; +ISOS1TAB28 PO; +LACT12LO26 EX; +LATA0.008 EACHEYE; -LISI20TA56 PO; -OME20T PO; +OMEP1CAP70 PO; +SPIR25TA8 PO
[2024-04-17 07:44] LABS: Urine Bacteria None Seen /hpf (None Seen)
[2024-04-17 07:50] LABS: Basophils # (auto) 0 10 ^3/uL (0-0.2); Hemoglobin 11.2 g/dL (13.5-17.5); Mean Corpuscular Hgb Conc. 31.7 g/dL (32.0-36.0); Neutrophils # (auto) 5.1 10 ^3/uL (1.6-8.6); Red Blood Cells 4.97 10^6/uL (4.5-5.90)
[2024-04-17 07:52] LABS: Basophils % (auto) 0.2 % (0.0-2.0); Eosinophils # (auto) 0.3 10 ^3/uL (0-0.8); Eosinophils % (auto) 3.3 % (0.0-7.0); Hematocrit 35.3 % (41.0-53.0); Lymphocytes # (auto) 4.1 10 ^3/uL (0.4-5.4); Lymphocytes % (auto) 39.8 % (10.0-50.0); Mean Corpuscular Hemoglobin 22.6 pg (28.0-32.0); Mean Corpuscular Volume 71.2 fL (80.0-100.0); Monocytes # (auto) 0.7 10 ^3/uL (0-1.3); Monocytes % (auto) 7.3 % (0.0-12.0); Neutrophils % (auto) 49.4 % (37.0-80.0); Platelet Count (auto) 228 10^3/uL (140-450); Red Cell Distribution Width 21.5 % (11.8-14.3); White Blood Cell 10.3 10^3/uL (4.4-10.8)
[2024-04-17 09:16] LABS: Alanine Aminotransferase 14 U/L (7-40); Alkaline Phosphatase 69 U/L (46-116); Anion Gap 10 (5-15); BUN/Creatinine Ratio 12.4 (10.0-20.0); Blood Urea Nitrogen 16 mg/dL (9-23); Calcium 9.3 mg/dL (8.7-10.4); Carbon Dioxide 22 mmol/L (20-31); Chloride 108 mmol/L (98-107); Glucose 183 mg/dL (74-106); Potassium 3.8 mmol/L (3.5-5.1); Sodium 140 mmol/L (136-145)
[2024-04-17 09:17] LABS: Albumin 4.4 g/dL (3.2-4.8); Aspartate Aminotransferase < 8 U/L (13-40)
[2024-04-17 09:18] LABS: Bilirubin, Total 0.4 mg/dL (0.2-1.0); Total Protein 8.3 g/dL (5.7-8.2)
[2024-04-17 14:32] LABS: Urine Budding Yeast Moderate /hpf (None Seen); Urine WBC 50 /hpf (0 - 3)
[2024-04-17 15:01] LABS: Urine Blood Negative /uL (Negative); Urine Clarity Clear (Clear); Urine Color Colorless (Yellow); Urine Protein, UAD 2+ (Negative); Urine Specific Gravity 1.012 (1.001-1.035); Urine Urobilinogen Normal (Negative)
== END | disposition home or self-care (01) ==
LOC: LAB 07:36
PROVIDERS: ATTEND Student in an Organized Health Care Education/Training Program
DX: I10 Essential (primary) hypertension (principal); E11.9 Type 2 diabetes mellitus without complications
CPT/HCPCS: 36415; 80053; 81001; 83036; 84443; 85025

== ENCOUNTER → 2024-07-14 | Outpatient (CLI) | payer OTHER, MEDICAID ==
[2024-07-14 06:58] LABS: Urine Bacteria None Seen /hpf (None Seen)
[2024-07-14 07:36] LABS: Eosinophils # (auto) 0.3 10 ^3/uL (0-0.8); Hemoglobin 12.3 g/dL (13.5-17.5); Neutrophils # (auto) 5.3 10 ^3/uL (1.6-8.6); Nucleated Red Blood Cells % 0.1 %; Platelet Count (auto) 196 10^3/uL (140-450); White Blood Cell 9.5 10^3/uL (4.4-10.8)
[2024-07-14 07:41] LABS: Basophils # (auto) 0 10 ^3/uL (0-0.2); Basophils % (auto) 0.4 % (0.0-2.0); Eosinophils % (auto) 3.3 % (0.0-7.0); Hematocrit 39.1 % (41.0-53.0); Lymphocytes % (auto) 31.4 % (10.0-50.0); Mean Corpuscular Hgb Conc. 31.4 g/dL (32.0-36.0); Monocytes # (auto) 0.8 10 ^3/uL (0-1.3); Monocytes % (auto) 8.9 % (0.0-12.0); Red Blood Cells 5.59 10^6/uL (4.5-5.90)
[2024-07-14 07:50] LABS: Alanine Aminotransferase 11 U/L (7-40); Alkaline Phosphatase 71 U/L (46-116); Anion Gap 8 (5-15); Bilirubin, Total 0.4 mg/dL (0.2-1.0); Calcium 9.9 mg/dL (8.7-10.4); Carbon Dioxide 25 mmol/L (20-31); Cholesterol 121 mg/dL (< 200); HDL Cholesterol 45 mg/dL (40-59); LDL Cholesterol 59 mg/dL (< 100); Potassium 4.9 mmol/L (3.5-5.1); Sodium 141 mmol/L (136-145); Triglycerides 91 mg/dL (< 150)
[2024-07-14 07:52] LABS: Albumin 4.9 g/dL (3.2-4.8); Aspartate Aminotransferase 9 U/L (13-40); Blood Urea Nitrogen 36 mg/dL (9-23); Chloride 108 mmol/L (98-107); Glucose 122 mg/dL (74-106); Total Protein 8.6 g/dL (5.7-8.2)
[2024-07-14 09:15] LABS: Urine Blood Negative /uL (Negative); Urine Budding Yeast MODERATE /hpf (None Seen); Urine Clarity Turbid (Clear); Urine Color Colorless (Yellow); Urine Protein, UAD 1+ (Negative); Urine Squamous Epithelial Cell None Seen /hpf (<5); Urine Urobilinogen Normal (Negative); Urine WBC 263 /HPF (0-3); Urine WBC Clumps PRESENT /hpf (None Seen); Urine pH 5.5 (5.0-9.0)
[2024-07-14 09:35] LABS: Creatinine, Urine 32.99 mg/dL (30.0-125.0)
== END | disposition home or self-care (01) ==
LOC: LAB 06:45
PROVIDERS: ATTEND Student in an Organized Health Care Education/Training Program
DX: I10 Essential (primary) hypertension (principal); E11.9 Type 2 diabetes mellitus without complications
CPT/HCPCS: 36415; 80053; 80061; 81001; 82043; 82570; 83036; 84443; 85025

== ENCOUNTER → 2024-10-07 | Outpatient (CLI) | payer OTHER, MEDICAID ==
[2024-10-07 06:40] LABS: Urine Bacteria None Seen /hpf (None Seen)
[2024-10-07 07:12] LABS: Basophils # (auto) 0 10 ^3/uL (0-0.2); Basophils % (auto) 0.2 % (0.0-2.0); Eosinophils # (auto) 0.4 10 ^3/uL (0-0.8); Eosinophils % (auto) 3.9 % (0.0-7.0); Mean Corpuscular Volume 73.2 fL (80.0-100.0); Monocytes # (auto) 0.9 10 ^3/uL (0-1.3); Neutrophils # (auto) 5.4 10 ^3/uL (1.6-8.6); White Blood Cell 9.6 10^3/uL (4.4-10.8)
[2024-10-07 07:15] LABS: Hematocrit 37.9 % (41.0-53.0); Lymphocytes # (auto) 2.9 10 ^3/uL (0.4-5.4); Lymphocytes % (auto) 30.4 % (10.0-50.0); Mean Corpuscular Hemoglobin 23.1 pg (28.0-32.0); Mean Corpuscular Hgb Conc. 31.5 g/dL (32.0-36.0); Neutrophils % (auto) 56.5 % (37.0-80.0); Platelet Count (auto) 227 10^3/uL (140-450); Red Blood Cells 5.18 10^6/uL (4.5-5.90)
[2024-10-07 07:18] LABS: Urine Blood Negative /uL (Negative); Urine Clarity Clear (Clear); Urine Color Light-Yellow (Yellow); Urine Protein, UAD TRACE (Negative); Urine Specific Gravity 1.009 (1.001-1.035); Urine Squamous Epithelial Cell None Seen /hpf (<5); Urine Urobilinogen Normal (Negative); Urine WBC < 1 /HPF (0-3); Urine pH 5.5 (5.0-9.0)
[2024-10-07 07:20] LABS: Calcium 9.4 mg/dL (8.7-10.4); Potassium 4.5 mmol/L (3.5-5.1)
[2024-10-07 07:25] LABS: Albumin 4.6 g/dL (3.2-4.8); Creatinine, Urine 76.09 mg/dL (30.0-125.0)
[2024-10-07 07:26] LABS: Red Cell Distribution Width 21.7 % (11.8-14.3)
[2024-10-07 07:43] LABS: Uric Acid 9.6 mg/dL (3.7-9.2)
== END | disposition home or self-care (01) ==
LOC: LAB 06:26
PROVIDERS: ATTEND Student in an Organized Health Care Education/Training Program
DX: E11.22 Type 2 diabetes mellitus with diabetic chronic kidney disease (principal); N18.30 Chronic kidney disease, stage 3 unspecified; E11.21 Type 2 diabetes mellitus with diabetic nephropathy; E21.3 Hyperparathyroidism, unspecified; E55.9 Vitamin D deficiency, unspecified; M10.9 Gout, unspecified; N39.0 Urinary tract infection, site not specified; R80.9 Proteinuria, unspecified; D63.1 Anemia in chronic kidney disease
CPT/HCPCS: 36415; 80069; 81001; 82043; 82570; 83970; 84550; 85025

== ENCOUNTER 2025-02-24 15:31 | Emergency (ER) | payer OTHER, MEDICAID ==
[~2025-02-24] VITALS: Ht 175.3 cm; Wt 110.0 kg
[2025-02-24 15:35] VITALS: BP 166/76; RESP 16; TEMP 98.7; O2SAT 96
[2025-02-24] MEDS: ONDANSETRON ODT 4 MG TAB PO ONE (18:38)
[2025-02-24] MEDS: HYDROcodone-ACET 5/325MG TAB PO ONE (18:38)
[2025-02-24 18:43] VITALS: PULSE 71
--- NOTE | 2025-02-24 18:43 | ED.PDOC ---
Janice. trauma (HPI) HPI Comments 69-YEAR-OLD MALE PRESENTS TO ER WITH COMPLAINTS OF RIB PAIN X1 DAY. PATIENT PRESENTS VIA EMS, REPORTING THAT HE SUSTAINED A MECHANICAL TRIP AND FALL WHILE USING HIS WALKER AT HOME 4 HOURS PRIOR TO ARRIVAL TO ER AND LANDED ON HIS RIGHT SIDE ONTO TILE SKYE AND HAS SINCE BEEN EXPERIENCING 10/10 RIGHT LOWER ANTERIOR RIBCAGE PAIN WITH RADIATION TOWARDS RIGHT POSTERIOR LOWER RIBS. DENIES HEAD INJURY/LOC AND DENIES USE OF MEDICATIONS FOR CURRENT SYMPTOMS. PATIENT PRESENTS TO ER AMBULATORY WITH USE OF CANE, IN MILD DISTRESS AND ALSO REPORTS 9/10 RIGHT 5TH FINGER PAIN. DENIES CHEST PAIN, SHORTNESS OF BREATH, BACK PAIN, N/V, DIZZINESS, HEADACHE, NECK PAIN, ABDOMINAL PAIN, HIP PAIN OR ANY FURTHER SYMPTOMS/COMPLAINTS Chief Complaint: Rib Pain Time Seen by MD: 18:13 Primary Care Provider: none Reviewed notes: Nurses Notes, Medications, Allergies Allergies: Coded Allergies: Ciprofloxacin (Verified Allergy, Unknown, RASH, 12/04/21) Metronidazole (Verified Allergy, Unknown, RASH, 12/04/21) Home Meds Active Scripts Acetaminophen (Acetaminophen) 500 Mg Tab, 500 MG PO Q4HPRN, #30 TAB 0 Refills Prov:KVNG NO 02/24/25 Reported Medications Lactic Acid (Ammonium Lactate) 12 % Lot, 1 TBS EX BID 01/08/24 Diclofenac Sodium (Topical) (Voltaren Arthritis Pain) 1 % Gel, 2 GRAMS TOP QID 01/08/24 Atorvastatin Calcium (Lipitor) 40 Mg Tab, 1 TAB PO DAILY 01/08/24 Losartan Potassium (Losartan Potassium) 100 Mg Tab, 1 TAB PO DAILY 01/08/24 Insulin Glargine (Lantus Solostar) 100 Unit/Ml Inj, 42 UNIT SC HS 01/08/24 Diclofenac Sodium (Topical) (Diclofenac Sodium) 1 % Gel, 2 GRAMS EXT QID 01/08/24 Omeprazole (Omeprazole Dr) 20 Mg Cap, 1 CAP PO DAILY 01/08/24 Isosorbide Mononitrate (Isosorbide Mononitrate Er) 30 Mg Tab, 1 TAB PO DAILY 01/08/24 Tirzepatide (Mounjaro) 7.5 Mg/0.5 Ml Inj, 7.5 MG SC QWEEKLY 01/08/24 Latanoprost (LATANOPROST) 0.005 % Myriam, 1 DROP EACHEYE QPM, #7.5 ML 3 Refills 01/06/24 Spironolactone (Spironolactone) 25 Mg Tab, 1 TAB PO DAILY, #90 TAB 1 Refill 01/06/24 Empagliflozin (Jardiance) 25 Mg Tab, 25 MG PO DAILY 01/06/24 Tizanidine Hydrochloride (Zanaflex) 4 Mg Tab, 1 TAB PO QPM for MUSCLE SPASM, #30 TAB 12/04/21 Metoprolol Tartrate (Metoprolol Tartrate) 100 Mg Tab, 100 MG PO BIDBRS for HTN for 30 Days, MG 12/04/21 Metformin HCl (Metformin Hydrochloride) 1,000 Mg Tab, 1000 MG PO BIDBRS for DIABETES, TAB 12/04/21 Hydralazine Hcl (Hydralazine Hcl) 50 Mg Tab, 1 TAB PO DAILY for HTN 12/04/21 Glipizide (Glipizide) 10 Mg Tab, 2 TAB PO BIDAC for DIABETES 12/04/21 Gabapentin (Gabapentin) 600 Mg Tab, 600 MG PO TIDP PRN for NEUROPATHY, MG 12/04/21 Furosemide (Furosemide) 40 Mg Tab, 1 TAB PO BID for EDEMA, #30 TAB 5 Refills 12/04/21 Amlodipine Besylate (Amlodipine Besylate) 10 Mg Tab, 1 TAB PO DAILY for HTN, #30 TAB 5 Refills 12/04/21 Information Source: Patient Mode of Arrival: EMS Past Medical History PAST MEDICAL HISTORY: AFIB, CAD, CHF, DM, HTN Surgical History: CABG, Cholecystectomy Surgical History (Other): COLOSTOMY Family History Family History: No family hx of Cancer, No family hx of Heart eliezer, Family hx of DM Social History Smoker: Non-Smoker Alcohol: Denies ETOH Use Drugs: Denies Drug Use Lives In: Home Constitutional: denies: chills, diaphoresis, fatigue, fever, malaise, sweats, weakness, others EENTM: denies: blurred vision, double vision, ear bleeding, ear discharge, ear drainage, ear pain, ear ringing, eye pain, eye redness, hearing loss, mouth pain , mouth swelling, nasal discharge, nose bleeding, nose congestion, nose pain, photophobia, tearing, throat pain, throat swelling, voice changes, others Respiratory: denies: cough, hemoptysis, orthopnea, SOB at rest, shortness of breath, SOB with excertion, stridor, wheezing, others Cardiovascular: denies: chest pain, dizzy spells, diaphoresis, Dyspnea on exertion, edema, irregular heart beat, left arm pain, lightheadedness, palpitations, PND, syncope, others Gastrointestinal: denies: abdomen distended, abdominal pain, blood streaked bowels, constipated, diarrhea, dysphagia, difficulty swallowing, hematemesis, melena, nausea, poor appetite, poor fluid intake, rectal bleeding, rectal pain, vomiting, others Genitourinary: denies: burning, dysuria, flank pain, frequency, hematuria, incontinence, penile discharge, penile sore, pain, testicle pain, testicle swelling, urgency, others Neurological: denies: dizziness, fainting, headache, left sided numbness, left sided weakness, numbness, paresthesia, pre-existing deficit, right sided numbness, right sided weakness, seizure, speech problems, tingling, tremors, weakness, others Musculoskeletal: reports: others ( STATED IN HPI) Integumetry: denies: bruises, change in color, change in hair/nails, dryness, laceration, lesions, lumps, rash, wounds, others Allergic/Immunocompromised: denies: Difficulty Healing, Frequent Infections, Hives, Itching, others Hematologic/Lymphatic: denies: anemia, blood clots, easy bleeding, easy bruising, swollen glands, others Endocrine: denies: excessive hunger, excessive sweating, excessive thirst, excessive urination, flushing, intolerance to cold, intolerance to heat, unexplained weight gain, unexplained weight loss, others Psychiatric: denies: anxiety, bipolar disorder, depression, hopeless, panic disorder, schizophrenia, sleepless, suicidal, others Physical Exam General Appearance: Mild Distress, Obese HEENT: Normal ENT Inspection, PERRL/EOMI, Pharynx Normal, TMs Normal Neck: Full Range of Motion, Non-Tender, Normal Respiratory: Lungs Clear, No Accessory Muscle Use, No Respiratory Distress, Normal Breath Sounds, Other (TTP TO RIGHT LOWER RIBCAGE AND RIGHT POSTERIOR LOWER RIBCAGE NOTED. NO CREPITUS/FLAIL CHEST NOTED. NO SKIN CHANGES APPRECIATED.) Cardiovascular: No Murmur, No Gallop, Regular Rate/Rhythm Breast Exam: Deferred Gastrointestinal: No Organomegaly, Non Tender, No Pulsatile Mass, Normal Bowel Sounds, Soft Genitalia: Deferred Pelvic: Deferred Rectal: Deferred Extremities: Normal capillary refill, Normal range of motion Musculoskeletal : Extremity Location: Little Finger (TTP NOTED TO RIGHT 5TH FINGER. PATIENT ABLE TO FULLY MOVE ALL FINGERS RIGHT HAND. NO SKIN CHANGES/NAILBED INJURY NOTED. NO TTP TO RIGHT WRIST NOTED. 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 Was a procedure done?: No Sedation Sedation?: No EKG EKG : Pulse Rate (adult): 71 Cardiac Rhythm: Afib Differential Diagnosis Multiple Trauma: Closed Head Injury, Fractures, Vascular Injury Neck Injury: Spinal Cord Injury X-Ray, Labs, Meds, VS Vital Signs Date Time Temp Pulse Resp B/P (MAP) Pulse Ox O2 Delivery O2 Flow Rate FiO2 02/24/25 18:43 71 02/24/25 15:35 98.7 66 16 166/76 96 98.7 02/24/25 15:32 71 Lab Test 02/24/25 18:41 Range/Units White Blood Count 9.6 4.4-10.8 10^3/uL Red Blood Count 5.89 4.5-5.90 10^6/uL Hemoglobin 14.1 13.5-17.5 g/dL Hematocrit 43.6 41.0-53.0 % Mean Corpuscular Volume 74.1 L 80.0-100.0 fL Mean Corpuscular Hemoglobin 24.0 L 28.0-32.0 pg Mean Corpuscular Hemoglobin Concent 32.4 32.0-36.0 g/dL Red Cell Distribution Width 21.0 H 11.8-14.3 % Platelet Count 195 140-450 10^3/uL Mean Platelet Volume 9.4 6.9-10.8 fL Neutrophils (%) (Auto) 59.9 37.0-80.0 % Lymphocytes (%) (Auto) 28.9 10.0-50.0 % Monocytes (%) (Auto) 7.6 0.0-12.0 % Eosinophils (%) (Auto) 3.3 0.0-7.0 % Basophils (%) (Auto) 0.3 0.0-2.0 % Neutrophils # (Auto) 5.8 1.6-8.6 10 ^3/uL Lymphocytes # (Auto) 2.8 0.4-5.4 10 ^3/uL Monocytes # (Auto) 0.7 0-1.3 10 ^3/uL Eosinophils # (Auto) 0.3 0-0.8 10 ^3/uL Basophils # (Auto) 0 0-0.2 10 ^3/uL Nucleated Red Blood Cells 0.0 % Prothrombin Time 11.4 9.3-11.8 sec Prothrombin Time INR 1.08 0.9-1.15 Activated Partial Thromboplast Time 27.1 24.5-34.5 SEC Troponin I High Sensitivity 27 </=54 ng/L Current Medications Medications (Trade) Dose Ordered Sig/Ash Route Start Time Stop Time Status Last Admin Acetaminophen/ Hydrocodone Bitart ([place] 5/325MG Tab) 1 tab ONCE ONCE PO 02/24/25 18:30 02/24/25 18:32 DC 02/24/25 18:38 Ondansetron HCl (Zofran Po) 4 mg ONCE ONCE PO 02/24/25 18:30 02/24/25 18:32 DC 02/24/25 18:38 PATIENT: TAMIA SHELLACCT: [id number] UNIT: [id number] : 1955 LOC: ER ROOM / BED: / AGE / SEX: 69 / M ADM STATUS: REG ER SERVICE 28 ORDERING PHYSICIAN: KVNG NO PROCEDURE(s): CX2CT - CHEST WITHOUT CONTRAST REASON: right sided rib pain ORDER NUMBER(s): [id number], ACCESSION NUMBER(s): [id number] Procedure: CT CHEST WITHOUT CONTRAST Reason for study/Clinical History: right sided rib pain Comparison Study: XY CHEST PORTABLE on DOS: 01/27/24, XY CHEST PORTABLE on DOS: 01/25/24, XY CHEST PORTABLE on DOS: 01/25/24 Exam Date: 02/24/2025 07:16 PM TECHNIQUE: Multidetector CT of the chest was performed from the lung apices to the upper abdomen without the use of intravenous contract. Axial, coronal and sagittal multiplanar reformats were performed. Radiation Dose Information: CT Dose: CTDI volume is 30.54 mGy. Dose-length product is 1117.92 mGy*cm The dose indicators for CT are the volume Computed Tomography (CT) Dose Index (CTDIvol) and the Dose Length Product (DLP), and are measured in units of mGy and mGy-cm, respectively. These indicators are not patient dose, but values generated from the CT scanner acquisition factors. The report includes radiation exposure data for exposures received during this examination. FINDINGS: Lower neck: Normal thyroid. Lungs: No focal consolidation, pleural effusion or pneumothorax. Heart/Vascular Structures: Normal heart size. No pericardial effusion. Lymph Nodes: No adenopathy Pleura: No pleural effusion or significant pneumothorax. Musculoskeletal: No acute osseous abnormality. Soft tissues: Normal. Upper abdomen: Limited portions of the upper abdomen are unremarkable. Gallbladder has been surgically removed. IMPRESSION: 1. No acute intrathoracic abnormality. 2. Sternal wire sutures in place 3. No compression of the thoracic vertebra. 4. No displaced rib fractures. 5. No pleural thickening or pleural effusions. 6. No pneumothorax. Radiation optimization: All CT scans at this facility use at least one of these dose optimization techniques: automated exposure control mA and/or kV adjustment per patient size (includes targeted exams where dose is matched to clinical indication) or iterative reconstruction. ATED BY: IGLESIA GRADY Jr., DO DICTATED DATE/TIME: 02/24/252010 SIGNED BY: IGLESIA GRADY Jr., SIGNED DATE/TIME: 02/24/252010 CC: PATIENT: TAMIA SHELLACCT: [id number] UNIT: [id number] : 1955 LOC: ER ROOM / BED: / AGE / SEX: 69 / M ADM STATUS: REG ER SERVICE 1829 ORDERING PHYSICIAN: KVNG NO PROCEDURE(s): RHAN - R HAND 3 VIEW XRAY REASON: right 5th finger pain ORDER NUMBER(s): [id number], ACCESSION NUMBER(s): [id number] CLINICAL INDICATION: right 5th finger pain TECHNIQUE: 3 radiographic views of the right hand were obtained. 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 ATED BY: IGLESIA GRADY Jr., DO DICTATED DATE/TIME: 02/24/251950 SIGNED BY: IGLESIA GRADY Jr., SIGNED DATE/TIME: 02/24/251950 CC: CBC REVIEWED WITHOUT ANY SIGNIFICANT ABNORMALITIES PT/PTT REMOVED-UNREMARKABLE TROPONIN REVIEWED-27 CT CHEST WITHOUT CONTRAST REVIEWED RIGHT HAND X-RAY REVIEWED EKG REVIEWED [place] 5/325 MG P.O. ORDERED ZOFRAN 4 MG P.O. ORDERED PATIENT HAD IMPROVEMENT IN SYMPTOMS, DENIED ANY CHEST PAIN/SOB AND IN NO DISTRESS PRIOR TO DISCHARGE ADVISED TO FOLLOW UP WITH PCP IN 1-2 DAYS PATIENT VERBALIZED UNDERSTANDING AND AGREEABLE WITH CURRENT PLAN OF CARE ADVISED TO RETURN TO ER IMMEDIATELY IF SYMPTOMS WORSEN Images Reviewed?: Images reviewed and evaluated by me Time of 1ST Reevaluation: 18:40 Reevaluation 1ST: N/A Patient Education/Counseling: Diagnosis, Treatment, Prognosis, Need For Follow Up Family Education/Counseling: No Family Present Departure 1 Departure Time of Disposition: 20:12 Impression: Primary Impression: Contusion of rib on right side Qualified Codes: S29.8XXA - Other specified injuries of thorax, initial encounter Additional Impression: Finger contusion Qualified Codes: S60.051A - Contusion of right little finger without damage to nail, initial encounter Disposition: HOME / SELF CARE / HOMELESS Condition: Stable e-Prescriptions Acetaminophen (Acetaminophen) 500 Mg Tab 500 MG PO Q4HPRN, #30 TAB 0 Refills Prov: KVNG NO 02/24/25 Discharged With: Friend Critical Care Note Critical Care Time?: No Stability Stability form required: No Heart Score Heart Score: Heart Score Response (Comments) Value History N/A 0 EKG N/A 0 Age N/A 0 Risk Factors N/A 0 Troponin N/A 0 Total 0 KVNG NO Feb 24, 2025 18:43
[2025-02-24 18:59] LABS: Hemoglobin 14.1 g/dL (13.5-17.5)
[2025-02-24 19:03] LABS: Hematocrit 43.6 % (41.0-53.0); Mean Corpuscular Hemoglobin 24.0 pg (28.0-32.0); Mean Corpuscular Volume 74.1 fL (80.0-100.0); Nucleated Red Blood Cells % 0.0 %
[2025-02-24 19:18] LABS: INR 1.08 (0.9-1.15); Partial Thromboplastin Time 27.1 SEC (24.5-34.5); Prothrombin Time 11.4 sec (9.3-11.8)
--- NOTE | 2025-02-24 19:53 | DVH ---
CLINICAL INDICATION: right 5th finger pain TECHNIQUE: 3 radiographic views of the right hand were obtained. 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
--- NOTE | 2025-02-24 20:13 | DVH ---
Procedure: CT CHEST WITHOUT CONTRAST Reason for study/Clinical History: right sided rib pain Comparison Study: XY CHEST PORTABLE on DOS: 01/27/24, XY CHEST PORTABLE on DOS: 01/25/24, XY CHEST PORTAB LE on DOS: 01/25/24 Exam Date: 02/24/2025 07:16 PM TECHNIQUE: Multidetector CT of the chest was performed from the lung apices to the upper abdomen with out the use of intravenous contract. Axial, coronal and sagittal multiplanar reformats were performed . Radiation Dose Information: CT Dose: CTDI volume is 30.54 mGy. Dose-length product is 1117.92 mGy*cm The dose indicators for CT are the volume Computed Tomography (CT) Dose Index (CTDIvol) and the Dose Length Product (DLP), and are measured in units of mGy and mGy-cm, respectively. These indicators are not patient dose, but values generated from the CT scanner acquisition factors. The report includes radiation exposure data for exposures received during this examination. FINDINGS: Lower neck: Normal thyroid. Lungs: No focal consolidation, pleural effusion or pneumothorax. Heart/Vascular Structures: Normal heart size. No pericardial effusion. Lymph Nodes: No adenopathy Pleura: No pleural effusion or significant pneumothorax. Musculoskeletal: No acute osseous abnormality. Soft tissues: Normal. Upper abdomen: Limited portions of the upper abdomen are unremarkable. Gallbladder has been surgicall y removed. IMPRESSION: 1. No acute intrathoracic abnormality. 2. Sternal wire sutures in place 3. No compression of the thoracic vertebra. 4. No displaced rib fractures. 5. No pleural thickening or pleural effusions. 6. No pneumothorax. Radiation optimization: All CT scans at this facility use at least one of these dose optimization skyler hniques: automated exposure control mA and/or kV adjustment per patient size (includes targeted exam s where dose is matched to clinical indication) or iterative reconstruction.
[2025-02-24] MEDS ORDERED: ACET500T58 PO (20:18)
--- NOTE | 2025-02-26 11:35 | ECG ---
[facility] Test Date: 2025-02-24 Test Time: 15:32:48 Pat Name: TAMIA WAGNER Department: [facility] ED Patient ID: [facility]-[id number] Room: Gender: M Marble Mason: johana : 1955 Requested By: EMERGENCY EMERGENCY Order Number: [id number] Reading MD: Ash Mccrary Measurements Intervals [place] Rate: 71 P: 0 HI: 0 QRS: -90 QRSD: 118 T: 40 QT: 409 QTc: 445 Interpretive Statements Normal sinus rhythm Nonspecific IVCD with LAD Inferior infarct, old Electronically Signed On 03-01-2025 10:17:29 PDT by Ash Mccrary Please click the below link to view image of tracing.
== END 2025-02-24 21:28 | disposition home or self-care (01) ==
LOC: ER 15:31 → EDBD 15:31 → ER 21:28
DX: S20.211A Contusion of right front wall of thorax, initial encounter (principal); S60.051A Contusion of right little finger without damage to nail, initial encounter; I11.0 Hypertensive heart disease with heart failure; I50.9 Heart failure, unspecified; E11.9 Type 2 diabetes mellitus without complications; I25.10 Atherosclerotic heart disease of native coronary artery without angina pectoris; I48.91 Unspecified atrial fibrillation; Z79.899 Other long term (current) drug therapy; Z79.85 Long-term (current) use of injectable non-insulin antidiabetic drugs; Z79.84 Long term (current) use of oral hypoglycemic drugs; Z88.1 Allergy status to other antibiotic agents; Z90.49 Acquired absence of other specified parts of digestive tract; Z93.3 Colostomy status; Z95.1 Presence of aortocoronary bypass graft; W01.0XXA Fall on same level from slipping, tripping and stumbling without subsequent striking against object, initial encounter; Y93.89 Activity, other specified; Y92.098 Other place in other non-institutional residence as the place of occurrence of the external cause; Y99.8 Other external cause status
CPT/HCPCS: 36415; 71250; 73130; 84484; 85025; 85610; 85730; 93005; 99285; Q0162

== ENCOUNTER → 2025-02-26 | Outpatient (CLI) | payer OTHER, MEDICAID ==
[~2025-02-26] MED LIST changes: +ACET500T58 PO
[2025-02-26 09:43] LABS: Hemoglobin 13.2 g/dL (13.5-17.5)
[2025-02-26 09:46] LABS: Hematocrit 40.6 % (41.0-53.0); Mean Corpuscular Hemoglobin 24.1 pg (28.0-32.0); Mean Corpuscular Volume 74.1 fL (80.0-100.0); Nucleated Red Blood Cells % 0.1 %
[2025-02-26 09:47] LABS: Urine Protein, UAD 1+ (Negative)
[2025-02-26 10:03] LABS: Alanine Aminotransferase 15 U/L (7-40); Albumin 4.6 g/dL (3.2-4.8); Alkaline Phosphatase 68 U/L (46-116); Anion Gap 10 (5-15); BUN/Creatinine Ratio 11.1 (10.0-20.0); Bilirubin, Total 0.5 mg/dL (0.2-1.0); Blood Urea Nitrogen 16 mg/dL (9-23); Calcium 9.3 mg/dL (8.7-10.4); Carbon Dioxide 23 mmol/L (20-31); Chloride 107 mmol/L (98-107); Potassium 4.4 mmol/L (3.5-5.1); Sodium 140 mmol/L (136-145)
[2025-02-26 10:11] LABS: Glucose 115 mg/dL (74-106); Total Protein 8.2 g/dL (5.7-8.2)
== END | disposition home or self-care (01) ==
LOC: LAB 09:00
PROVIDERS: ATTEND Student in an Organized Health Care Education/Training Program
DX: I10 Essential (primary) hypertension (principal); N40.0 Benign prostatic hyperplasia without lower urinary tract symptoms; E11.9 Type 2 diabetes mellitus without complications; N39.0 Urinary tract infection, site not specified
CPT/HCPCS: 36415; 80053; 81001; 83036; 84153; 85025; 87086